=== PATIENT | female | born 1955 | race Caucasian/White ===

== ENCOUNTER 2023-09-03 19:14 | Emergency (ER) | payer MEDICARE, SELFPAY ==
--- NOTE | ~2023-09-03 | XR_ITS ---
EXAMINATION: XR CHEST CLINICAL INFORMATION: Shortness of breath COMPARISON: None available. TECHNIQUE: Frontal view of the chest was obtained. FINDINGS: No significant abnormality is noted involving the heart, lungs, mediastinum, bony thorax or soft tissues. XR/XR chest 1V IMPRESSION: Unremarkable examination.
--- NOTE | 2023-09-03 19:31 | ED_ITS ---
[facility] - General Adult General Chief complaint: Dyspnea Stated complaint: Difficulty breathing, face feels numb Time Seen by Provider: 09/04/23 00:42 Source: patient Mode of arrival: ambulatory History of Present Illness HPI narrative: 68-year-old female who presents with epigastric discomfort that is been ongoing for a couple of days and she reports palpitations but otherwise denies any fever, chills, cough, nausea, vomiting, diarrhea. Patient is visiting from [place] and states that she was on medications which she cannot recall but has since discontinued them. She is due to return to floor at a on 09/11. Related Data Allergies Allergy/AdvReac Type Severity Reaction Status Date / Time morphine Allergy Rash Verified 09/03/23 19:31 Review of Systems 2 Review of Systems: Pertinent positives and negatives as stated in [facility] Past Medical History Source: nursing notes reviewed Social History Social History Advance Directives: No Advance Directives Information Provided: No Physical Exam ED Vital Signs: Vital Signs - 24 hr 09/03/23 19:32 09/04/23 00:00 09/04/23 01:16 Temperature 98.3 F Pulse Rate 82 67 68 Respiratory Rate 18 14 Blood Pressure 141/75 H 136/68 138/62 Pulse Oximetry 98 94 Oxygen Delivery Method Room Air Room Air 09/04/23 01:16 09/04/23 01:19 Temperature Pulse Rate 70 74 Respiratory Rate Blood Pressure 143/72 H 138/70 Pulse Oximetry Oxygen Delivery Method BMI result Body Mass Index 34.3 VITAL SIGNS: Reviewed. GENERAL: Well developed, well nourished, in no acute distress. HEAD: Normocephalic/atraumatic EYES: PERRLA, EOMI EARS: Ext canals without abnormality, TMs non-bulging and non-erythematous NOSE: Nares patent bilateral OROPHARYNX: no oral lesions noted, posterior pharynx clear and non-erythematous without noted tonsillar enlargement/erythema/exudates NECK: Supple, no adenopathy LUNGS: Normal breath sounds. No adventitious sounds or accessory muscle use. SpO2<98> CARDIOVASCULAR: Regular rate and rhythm without noted murmurs ABDOMEN: Soft, mild epigastric pain without rebound, non-distended with bowel sounds. MUSCULOSKELETAL: No tenderness, deformities, or effusions noted on gross inspection. EXTREMITIES: No cyanosis, clubbing or edema. SKIN: Inspection of the skin reveals no rashes NEUROLOGIC: Alert and oriented x 4. Strength and sensation to light touch were grossly intact x 4. Course Course Course Narrative: RME: 68 yo F w/PMHx Fibromyalgia, arthritis, HTN, presenting to the ED c/o SOB, palpitations, face feeling numb/pressure, and lightheadedness x3hrs. Admits to similar sx in the past no focal neuro deficits. Ambulating with steady gait EKG, Labs, CXR, Viral testing ordered Full HPI, ROS and PE to be performed by primary ED provider. Medical Decision Making Medical Decision Making MDM Narrative: 68-year-old female with history and clinical presentation, DDX: Viral illness, gastritis/acid reflux, patient is status post cholecystectomy so no suspicion for cholecystitis and historical presentation not consistent with pancreatitis, will rule out pneumonia as well. I reviewed all investigations and hematologic indices are negative for leukocytosis or left shift, there is no anemia or thrombocytopenia. Chemistry indices are negative for acute derangement there is no evidence to suggest JURGEN are electrolyte/liver enzyme derangements. High sensitivity troponin is undetectable and BNP is negligible. Patient does have a TSH of 0.28 but denies the use of any prescription medications at this time. Although this could likely be contributing to the palpitations. Viral testing is negative for COVID-19/influenza. Chest x-ray negative for infiltrate or venous congestion otherwise my interpretation is in agreement with radiology's impression. There are no acute findings on EKG. My interpretation is that patient may be experiencing palpitations secondary to low TSH, as she is returning to floor in the next few days and her workup has otherwise been negative I do recommend that patient follow-up with her primary care doctor at her earliest convenience on return to floor. In addition, patient may have a component of acid reflux and was treated with a GI cocktail. Differential Diagnosis Differential Diagnoses: The differential diagnosis associated with the presentation includes Please see the discussion above Admission/Observation Consideration of admission/observation: Escalation of care including admission/observation considered Please see the discussion above Lab Data [facility] Lab Attestation statement: I reviewed the patient's lab results. Please see the discussion above 09/03/23 19:59 09/03/23 19:59 Labs: Lab Results 09/03/23 Range/Units 19:59 WBC 5.9 (4.8-10.8) X10*3/uL RBC 4.45 (4.20-5.50) X10*6/uL Hgb 12.6 (12.0-16.0) g/dl Hct 37.7 (37.0-47.0) % MCV 84.7 (80.0-98.0) fL MCH 28.3 (27.0-33.0) pg MCHC 33.4 (31.0-35.0) g/dl RDW 12.7 (11.0-16.0) % Plt Count 201 (160-400) X10*3/uL MPV 11.3 (9.4-12.3) fL Immature Gran % (Auto) 0.7 H (0.0-0.4) % Neut % (Auto) 55.9 (45-73) % Lymph % (Auto) 29.3 (20-40) % [place] % (Auto) 11.4 H (2-11) % Eos % (Auto) 1.7 (0-4) % Baso % (Auto) 1.0 (0-2) % Lymph # (Auto) 1.7 (1.2-4.9) X10*3/uL [place] # (Auto) 0.7 (0.1-1.2) X10*3/uL Eos # (Auto) 0.1 (0.0-0.4) X10*3/uL Baso # (Auto) 0.1 (0.0-0.2) X10*3/uL Abs Immat Gran (auto) 0.04 H (0.00-0.03) X10*3/uL Absolute Neuts (auto) 3.3 (2.0-8.3) x10*3/uL Absolute Nucleated RBC 0.000 (0.0-0.012) X10*3/uL Nucleated RBC % (auto) 0.0 (0.0-0.2) /100WBC Sodium 140 (135-145) mmol/L Potassium 4.0 (3.3-5.1) mmol/L Chloride 104 (96-108) mmol/L Carbon Dioxide 29 (22-29) mmol/L Anion Gap 11 L (12-20) BUN 15 (9-16) mg/dL Creatinine 0.80 (0.5-1.4) mg/dL Estim Creat Clear Calc 68.1 Estimated GFR > 60 Random Glucose 85 (60-115) mg/dL Calcium 9.1 (8.4-10.2) mg/dL Magnesium 2.2 (1.6-2.6) mg/dL Total Bilirubin 0.3 (0.0-1.0) mg/dL Direct Bilirubin 0.2 (0.0-0.5) mg/dL AST 21 (5-31) U/L ALT 22 (0-31) U/L Alkaline Phosphatase 93 (39-117) U/L Troponin I High Sens < 2.7 (<3.5-17.0) ng/L B-Natriuretic Peptide 44 (<100) pg/mL Total Protein 7.4 (6.5-8.0) g/dL Albumin 3.8 (3.5-5.0) g/dL TSH 0.28 L (0.32-4.0) uIU/mL Free T4 1.04 (0.71-1.85) ng/dL COVID-19 (KEVIN) Negative (Negative) COVID-19 Clin Com See Note Influenza Type A (LUIS E) Negative (Negative) Influenza Type B (LUIS E) Negative (Negative) Influenza A & B Note See Note Independent Interpretation I performed an independent interpretation of an: EKG Interpretation: Normal sinus rhythm, HR-72, no STEMI, [place]/QRS/QTC is within normal limits. Radiology Impression Discussion of test interpretation with radiology: I have reviewed the radiologist's reading. Radiologist Impression: Please see the discussion above Discharge Plan Discharge Clinical Impression: Heart palpitations, Low TSH level, GERD (gastroesophageal reflux disease) Patient Disposition: Home, Self-Care Instructions: Diet for Stomach Ulcers and Gastritis (ED), Gastroesophageal Reflux Disease (ED), Heart Palpitations (ED) Additional Instructions: 1. Recommend follow-up with your primary care doctor as soon as possible after your return to [place]. 2. Recommend [id number] Mylanta for acid reflux. Return to the ER for any worsening symptoms.
[2023-09-03 19:32] VITALS: BP 141/75; PULSE 82; RESP 18; TEMP 36.8; O2SAT 98; BMI 34.3
--- NOTE | 2023-09-03 19:33 | ECG_ITS ---
Test Reason : CHEST PAIN Blood Pressure : / mmHG Vent. Rate : 072 BPM Atrial Rate : 072 BPM P-R Int : 178 ms QRS Dur : 082 ms QT Int : 424 ms P-R-T Axes : 046 -18 075 degrees QTc Int : 464 ms Normal sinus rhythm Minimal voltage criteria for LVH, may be normal variant ( R in aVL ) Nonspecific ST abnormality Abnormal ECG No previous ECGs available Referred By: Amy Trujillo Electronically Signed By:VERO GARCÍA
[2023-09-03 20:06] LABS: MANUAL DIFF FLAG NO
[2023-09-03 20:28] LABS: COVID-19 Test Negative (Negative); IDNOW Serial# 08D9AD1C; IDNOW Serial# BCCEAD1C; Influenza A Negative (Negative); Influenza B2 Negative (Negative)
[2023-09-03 20:33] LABS: B Type Natriuretic Peptide 44 pg/mL (<100)
[2023-09-03 20:34] LABS: Alanine Aminotransferase 22 U/L (0-31); Albumin Level 3.8 g/dL (3.5-5.0); Alkaline Phosphatase 93 U/L (39-117); Anion Gap 11 (12-20); Aspartate Amino Transferase 21 U/L (5-31); Basophils Absolute Auto 0.1 X10*3/uL (0.0-0.2); Bilirubin Direct 0.2 mg/dL (0.0-0.5); Bilirubin Total 0.3 mg/dL (0.0-1.0); Blood Urea Nitrogen 15 mg/dL (9-16); Calcium 9.1 mg/dL (8.4-10.2); Carbon Dioxide 29 mmol/L (22-29); Chloride 104 mmol/L (96-108); Creatinine Clr Calc Pharmacy 68.1; Eosinophils Absolute Auto 0.1 X10*3/uL (0.0-0.4); Eosinophils Percent Auto 1.7 % (0-4); Estimated Glomerular Filt Rate > 60; Glucose Random 85 mg/dL (60-115); Hematocrit 37.7 % (37.0-47.0); Hemoglobin 12.6 g/dl (12.0-16.0); Imm Gran Abs Auto 0.04 X10*3/uL (0.00-0.03); Imm Gran Pct Auto 0.7 % (0.0-0.4); Lymphocytes Absolute Auto 1.7 X10*3/uL (1.2-4.9); Lymphocytes Percent Auto 29.3 % (20-40); Magnesium 2.2 mg/dL (1.6-2.6); Mean Corpuscular HGB Conc 33.4 g/dl (31.0-35.0); Mean Corpuscular Hemoglobin 28.3 pg (27.0-33.0); Mean Corpuscular Volume 84.7 fL (80.0-98.0); Mean Platelet Volume 11.3 fL (9.4-12.3); Monocytes Absolute Auto 0.7 X10*3/uL (0.1-1.2); Monocytes Percent Auto 11.4 % (2-11); Neutrophils Absolute Auto 3.3 x10*3/uL (2.0-8.3); Neutrophils Percent Auto 55.9 % (45-73); Platelet Count 201 X10*3/uL (160-400); Red Blood Count 4.45 X10*6/uL (4.20-5.50); Red Cell Distribution Width 12.7 % (11.0-16.0); Sodium 140 mmol/L (135-145); Total Protein 7.4 g/dL (6.5-8.0); White Blood Count 5.9 X10*3/uL (4.8-10.8)
[2023-09-03 20:35] LABS: Troponin-I High Sensitivity < 2.7 ng/L (<3.5-17.0)
[2023-09-03 20:49] LABS: TSH reflex Free T4 0.28 uIU/mL (0.32-4.0)
[2023-09-03 21:26] LABS: Free T4 (Free Thyroxine) 1.04 ng/dL (0.71-1.85)
[2023-09-04] VITALS: BP 136/68; PULSE 67; RESP 14; O2SAT 94
--- OUTSIDE RECORDS SUMMARY | 2023-09-04 00:11 | XMS_ITS | Summary of Care ---
Author Name Unknown Organization [facility] Address [address] [place] [address]- Care Team Providers Care Home Health Scheduler Name Role Phone Darlene Cohen Primary Care Physician Encounter [facility] [id number] Date(s): 07/03/23 - 07/03/23 [facility] [address] [facility] [phone] Encounter Diagnosis Left knee pain(Discharge Diagnosis) - 07/03/23 Discharge Disposition: HOME OR SELF CARE Attending Physician: Figueroa Wu MD Allergies, Adverse Reactions, Alerts Substance Reaction Severity Status naproxen rash Mild Active morphine Rash Active Assessment and Plan Extracted from: Title:ED Visit Note Author:Marcos Patel Date:07/03/23 Knee pain-swelling??(Knee pa in-swelling)([id number]) Orders: codeine-acetaminophen, 1 tab(s), PO, q6hr, X 3 day(s), # 12 tab(s), 0 Refill(s), 1 ketorolac, 15 mg, = 1 mL, IM, Inj, Once, 07/03/23 19:27:00 EDT, Stop date 07/03/23 19:27:00 EDT, STAT Discharge Patient Medications *Recommended Immunization Pneumococcal Vaccine TO BE ADMINISTERED OUTPATIENT, Based on screening during your hospitalization, it is recommended that you receive a pneumococcal vaccine. Please follow up with your primary care physician, [facility] pharmacy, or other outpatient pharmacy for further assistance., 0 Refill(s) Start Date: 07/20/21 Status: Ordered Albuterol (Eqv-ProAir HFA) 90 mcg/inh inhalation aerosol 2 puff(s), INH, 4xDaily, # 8 g, 0 Refill(s), Pharmacy: [id number], 2 puff(s) INH 4xDaily, 1, 157.48, cm, 07/20/21 4:23:00 EST, Height cm, 82.25, kg, 12/28/22 0:36:00 EDT, Weight, Actual kg Start Date: 12/28/22 Status: Ordered Althea 180 mg oral tablet 180 mg, = 1 tab(s), PO, 1xDaily, # 30 tab(s), 0 Refill(s), 12/28/22 4:44:00 AM EDT, Pharmacy: [facility], 1 tab(s) PO 1xDaily, 1, 157.48, cm, 07/20/21 4:23:00 EST, Height cm, 82.25, kg, 12/28/22 0:36:00 EDT, Weight, Actual kg Start Date: 12/28/22 Status: Ordered aspirin 81 mg oral tablet, chewable 81 mg =, 1 tab(s), PO, 1xDaily, 0 Refill(s), 1 Start Date: 07/20/21 Status: Ordered codeine-acetaminophen 30 mg-300 mg oral tablet 1 tab(s), PO, q6hr, X 3 day(s), # 12 tab(s), 0 Refill(s), 1 Start Date: 07/03/23 Stop Date: 07/06/23 Status: Ordered Flexeril 10 mg oral tablet 10 mg, = 1 tab(s), PO, 3xDaily, PRN for spasm, # 15 tab(s), 0 Refill(s), 08/12/20 10:07:00 AM EST, 1 Start Date: 08/12/20 Status: Ordered lisinopril 10 mg, PO, 1xDaily, 0 Refill(s), 07/20/21 11:33:00 AM EST, 1 Start Date: 07/20/21 Status: Ordered Naprosyn 375 mg oral tablet 375 mg, = 1 tab(s), PO, 2xDaily, # 20 tab(s), 0 Refill(s), 08/12/20 10:07:00 AM EST, 1 Start Date: 08/12/20 Status: Ordered Tylenol 325 mg oral tablet 650 mg =, 2 tab(s), PO, q6hr, PRN as needed for pain, 1 Start Date: 02/13/20 Status: Ordered Vitamin B12 1000 mcg oral tablet 1,000 mcg, = 1 tab(s), PO, 1xDaily, 02/13/20 9:22:00 AM EDT, 1 Start Date: 02/13/20 Status: Ordered Vitamin C 1000 mg oral tablet 1,000 mg, = 1 tab(s), PO, 1xDaily, 02/13/20 9:22:00 AM EDT, 1 Start Date: 02/13/20 Status: Ordered Vitamin D3 1000 intl units oral capsule 1,000 Intl-Unit, = 1 cap(s), PO, 1xDaily, 02/13/20 9:22:00 AM EDT, 1 Start Date: 02/13/20 Status: Ordered Problem List Condition Confirmation Course Effective Dates Status H ealth Status Informant Acute cervical radiculopathy Confirmed Active Spondylosis of cervical joint Confirmed Active Hypertension Confirmed Active Obese Confirmed Active Vital Signs Most recent to oldest [Reference Range]: 1 Temperature Oral [96.8-101 DegF] 98.2 De gF (07/03/23 4:52 PM) Pulse Rate [60-90 bpm] 69 bpm (07/03/23 5:28 PM) Respiratory Rate [12-20 br/min] 18 br/mi n (07/03/23 4:52 PM) Mean Arterial Pressure, Cuff [65 mmHg] 8 5 mmHg (07/03/23 5:28 PM) BP Obtained By Blood pressure by ruy montanez (07/03/23 4:52 PM) Blood Pressure [90-120/60-90 mmHg] 113/7 1mmHg (07/03/23 5:28 PM) Social History Social History Type Response Smoking Status Never a smoker Sex Female XR Knee GE 4 Views * Event Display: Knee Comp W/4 or > Views Authored Date: [id number] * Event Display: Knee Comp W/4 or > Views Authored Date: [id number] Exam Date/Time: 07/03/2023 18:09 Finalized On: 07/03/2023 18:17 PROCEDURE: KNEE 4 OR MORE VIEWS LEFT CLINICAL INDICATION: Left knee pain Findings and impression: There is moderate to severe tricompartmental osteoporosis, worse within the medial compartment. No fracture identified. No radiopaque foreign bodies. No aggressive osseous lesions. RPRETED BY: Shadi Kunz Finalized On: 07/03/2023 18:17 Physician Emergency department Note * Marcos Patel PA-C: PERFORM, MODIFY Event Display: ED Physician Notes Authored Date: [id number] Chief Complaint Pt here for L knee pain off and on for a while, states now for apst 2 days has been much worse. Feels as if something isstabbing her in knee. Denies any injuryor trauma. Skin w/d. Resp e/u. History of Present Illness Date/Time Seen:??07/03/2023 19:00:28 ?? Patient Provided History:??Yes [employer] used:??No History limitation:??None Independent History Source:??_ ?? Chief Complaint:??Reason for Visit Narrative: Pt here for L knee pain off and on for a while, states now for apst 2 days has been much worse. Feels as if something isstabbing her in knee. Denies any injuryor trauma. Skin w/d. Resp e/u. (07/03/23 16:52:00) Mode of Arrival:??ED Mode of Arrival: Ambulatory/WC/Carried (07/03/23 16:52:00) PCP:??Primary Care Physician:?Noel , Darlene Sex:??female Administrative Sex:??Female ?? HPI: Patient is a??68 Years??old??Female??presenting with a complaint of [left knee pain for??10years??and for the past month she has felt increased??pain, and??within this past week the pain??has been worsening.?? Patient??reports that she was limping. ??Patient denies having direct impact to the area.?? She denies weakness or numbness. ??Patient states she??has seen orthopedics in the past and??was given an injection into her joint.]. ?? Physical Exam Vitals & Measurements Initial: T: 98.2 ??F (Oral) HR: 72 (Peripheral) BP: 146/78 RR: 18 SpO2: 97% ?? Latest: HR: 69 (Peripheral) BP: 113/71 SpO2: 96% General: in NAD. Speaks in complete sentences. Non-toxic. HEENT: NCAT, PERRLA, EOMI CV: Normal pulse Resp: non-labored. Neuro: AAO x 3, normal affect, normal mood Skin: normal turgor Musculoskeletal:??Left knee:??Tenderness on palpation medial aspect of the knee and on range of motion.?? No ligamentous laxity. ??Negative Lorenzo's test tenderness. Medical Decision Making Differential Diagnosis: [Left knee pain] ?? Consideration of Admission/Observation:??_ ?? Chronic conditions affecting care: [] _ _ _ ?? MDM Rationale: [Patient is a??68 Years??old??Female??presenting with a complaint of [left knee painfor??10 years??and for the past month she has felt increased??pain, and??within this past week the pain??has been worsening.?? Patient??reports that she was limping. ??Patient denies having direct impact to the area.?? She denies weakness or numbness. ??Patient states she??has seen orthopedics in the past and??was given an injection into her joint.].]?? Patient was x-ray of the left knee was negative for acute fracture. ?? Discussion of management with other physician/healthcare provider: [] _ _ _ _ ?? External Notes Reviewed: [] _ _ _ _ ?? Independent Interpretation: EKG: My independent interpretation is:??n/a Rhythm Strip: My independent interpretation is:??n/a X-ray:??My independent interpretation is:??n/a Ultrasound: My independent interpretation is:??n/a CT: My independent interpretation is:??n/a ?? Discussion of Radiology Result with Radiologist:??_ ?? Testing considered but not performed: The following testing was considered but ultimately not selected after discussion with patient/family: ??n/a ?? Prescription medication was considered but ultimately not given after discussion with patient/family:?? I considered prescription management with:??n/a ?? Patient???s care significantly limited by Social Determinants of Health including:??[]?? _ _ _ _ ?? Behavioral Health: Initial CSSRS:??CSSRS Suicide Risk Level?? No qualifying data available. CSSRS Re-evaluation:??n/a ?? Sepsis:??n/a ?? Stroke:??n/a ?? STEMI:??n/a ?? Reexamination/Reevaluation Date/Time:??07/04/2023 04:54:37 ?? Most Recent Vital Signs: Temperature Oral: 98.2 DegF (07/03/23 16:52:00) Pulse Rate: 69 bpm (07/03/23 17:28:45) Respiratory Rate: 18 br/min (07/03/23 16:52:00) Systolic Blood Pressure: 113 mmHg (07/03/23 17:28:42) Diastolic Blood Pressure: 71 mmHg (07/03/23 17:28:42) Oxygen Therapy: Room air (07/03/23 16:52:00) SpO2: 96 % (07/03/23 17:28:45) ?? Orthostatics:??n/a ?? Reevaluation: [Patient was in no acute distress] ? Assessment/Plan Diagnosis List Knee pain-swelling??(Knee pain-swelling)([id number]) Orders: codeine-acetaminophen, 1 tab(s), PO, q6hr, X 3 day(s), # 12 tab(s), 0 Refill(s), 1 ketorolac, 15 mg, = 1 mL, IM, Inj, Once, 07/03/23 19:27:00 EDT, Stop date 07/03/23 19:27:00 EDT, STAT Discharge Patient Follow Up Follow Up with??Jordan Mcnamara MD, Orthopedic Surgery When??Within 3 - 5 Days Comments: Call to arrange an appointment Where: Allergies naproxen??(rash) morphine??(Rash) Problem List/Past Medical History Ongoing Acute cervical radiculopathy Hypertension Obese Spondylosis of cervical joint Historical Arthritis Fibromyalgia Procedure/Surgical History ??? delivery???Laryngotomy with removal of tumor???Tubal ligation???Uterine cancer Social History Tobacco Tobacco Use: Never a smoker (07/03/23) Alcohol Denies use Diagnostic Results Radiology Results??(07/02/23 00:00 - 07/03/23 19:39) Electronically Signed By: Marcos Patel PA-C, on 07.04.2023 04:56 AM Electronically Signed By: Figueroa Wu MD Patient Care team information Care Team Personnel Name: Darlene Cohen Position: Office Physician Member Role: PCP Lifetime Address: Address: [address] [place] [id number] [place] Name: Figueroa Wu MD Position: ED Physician Member Role: Attending Physician Address: Address: [address] [place] [phone] [place] Name: Marcos Patel PA-C Position: ED Physician Preschool Assistant Member Role: PA Address: Address: [address] [place] [phone] [place]
--- OUTSIDE RECORDS SUMMARY | 2023-09-04 00:11 | XMS_ITS | Summary of Care ---
Author Name Unknown Organization [facility] Address [address] [place] [address]- [facility] [phone] Encounter [facility] Date(s): 04/02/19 - 04/02/[address] [facility] [address] [place] [id number] [phone] Encounter Diagnosis Vomiting(Discharge Diagnosis) - 04/02/19 Diarrhea(Discharge Diagnosis) - 04/02/19 Arthritis(Discharge Diagnosis) - 04/02/19 Discharge Disposition: [facility] HOME/ROUTINE DISCHARGE Attending Physician: Miguel De La O DO Admitting Physician: UNASSIGNED , ER DOCTOR Vital Signs Most recent to oldest [Reference Range]: 1 2 3 Temperature Oral [96.4-99.1 DegF] 98.6 DegF (04/02/19 7:50 PM) 98 DegF (04/02/19 2:53 PM) Heart Rate Monitored [60-100 bpm] 68 bpm (04/02/19 10:07 PM) 70 bpm (04/02/19 9:21 PM) 67 bpm (04/02/19 7:50 PM) Pulse Rate [60-100 bpm] 80 bpm (04/02/19 2:53 PM) Respiratory Rate [14-20] 16 (04/02/19 10:07 PM) 18 (04/02/19 9:21 PM) 20 (04/02/19 7:50 PM) Mean Arterial Pressure, Cuff 87 mmHg (04/02/19 10:07 PM) 98 mmHg (04/02/19 9:21 PM) 95 mmHg (04/02/19 7:50 PM) BP Obtained By Blood Pressure by Machine (04/02/19 2:53 PM) ED Laterality Right arm (04/02/19 2:53 PM) Weight, Actual kg 82 kg (04/02/19 2:53 PM) Weight, Actual kg - manual 82 kg (04/02/19 2:53 PM) Type of Scale Used Standing (04/02/19 2:53 PM) Height cm 157.48 cm (04/02/19 2:53 PM) Height Inches 62 inch(es) (04/02/19 2:53 PM) Body Surface Area 1.8939 (04/02/19 2:53 PM) Body Mass Index (BMI) 33 kg/m2 (04/02/19 2:53 PM) Blood Pressure [90-120/60-80 mmHg] 136/68mmHg *HI* (04/02/19 10:07 PM) 139/78mmHg *HI* (04/02/19 9:21 PM) 140/77mmHg *HI* (04/02/19 7:50 PM) Problem List Condition Effective Dates Status Health Status Inform ant Spondylosis of cervical joint(Confirmed) Active Hypertension(Confirmed) Active Allergies, Adverse Reactions, Alerts Substance Reaction Severity Status morphine Rash Active Medications Zofran ODT 4 mg oral tablet, disintegrating 4 mg, = 1 tab(s), PO, q6hr, PRN Nausea/Vomiting, X 3 day(s), # 12 tab(s), 0 Refill(s), 04/02/19 20:30:00 EDT, 1 Start Date: 04/02/19 Stop Date: 04/05/19 Status: Ordered Results Most recent to oldest [Reference Range]: 1 Culture Reflexed No (04/02/19 7:49 PM) eGFR (nonAfrAm) [>=60 mL/min/1.73 m2] >6 0 mL/min/1.73 m2 (04/02/19 3:24 PM) eGFR (AfrAm) [>=60 mL/min/1.73 m2] >60 m L/min/1.73 m2 (04/02/19 3:24 PM) eCrCl (Drug Dosing) [70-120 mL/min] 81 m L/min 1 (04/02/19 3:24 PM) Basophil, Abs [0.0-0.2 th/uL] 0.1 th/uL (04/02/19 3:24 PM) BUN [6-26 mg/dL] 10 mg/dL (04/02/19 3:24 PM) Anion Gap [5-16] 12 (04/02/19 3:24 PM) Albumin [3.4-5.0 g/dL] 4.2 g/dL (04/02/19 3:24 PM) Alk Phos [45-117 IU/L] 89 IU/L (04/02/19 3:24 PM) ALT [12-78 IU/L] 23 IU/L (04/02/19 3:24 PM) AST [7-37 IU/L] 22 IU/L (04/02/19 3:24 PM) Baso [0.0-2.0 %] 1.2 % (04/02/19 3:24 PM) Bili Total [0.2-1.0 mg/dL] 0.4 mg/dL (04/02/19 3:24 PM) Calcium [8.50-10.10 mg/dL] 9.20 mg/dL (04/02/19 3:24 PM) Chloride [98-107 mmol/L] 103 mmol/L (04/02/19 3:24 PM) Carbon Dioxide [21-32 mmol/L] 28 mmol/L (04/02/19 3:24 PM) Creatinine [0.30-1.30 mg/dL] 0.69 mg/dL (04/02/19 3:24 PM) Eos [0.0-6.0 %] 1.8 % (04/02/19 3:24 PM) Eosinophil, Abs [0.0-0.4 th/uL] 0.1 th/u L (04/02/19 3:24 PM) Glucose [70-99 mg/dL] 112 mg/dL *HI* (04/02/19 3:24 PM) HCT [37.0-47.0 %] 39.7 % (04/02/19 3:24 PM) HGB [12.0-16.0 g/dL] 13.6 g/dL (04/02/19 3:24 PM) Lipase [73-393 U/L] 41 U/L *LOW* (04/02/19 3:24 PM) Lymphs [24.0-44.0 %] 22.1 % *LOW* (04/02/19 3:24 PM) MCH [26.0-32.0 pg] 29.8 pg (04/02/19 3:24 PM) MCHC [31.0-36.0 g/dL] 34.1 g/dL (04/02/19 3:24 PM) MCV [80.0-100.0 fL] 87.2 fL (04/02/19 3:24 PM) Caroline [0.0-10.0 %] 9.9 % (04/02/19 3:24 PM) MPV [6.5-13.0 fL] 10.2 fL (04/02/19 3:24 PM) Segs [45.0-75.0 %] 65.0 % (04/02/19 3:24 PM) PLT [140-450 th/uL] 161 th/uL (04/02/19 3:24 PM) Potassium [3.5-5.1 mmol/L] 4.3 mmol/L (04/02/19 3:24 PM) RBC [3.60-5.40 mill/uL] 4.55 mill/uL (04/02/19 3:24 PM) RDW [11.5-14.5 %] 13.5 % (04/02/19 3:24 PM) Sodium [136-145 mmol/L] 142 mmol/L (04/02/19 3:24 PM) WBC [4.5-11.0 th/uL] 4.9 th/uL (04/02/19 3:24 PM) Leuk Est Negative (04/02/19 7:49 PM) Nitrite Negative (04/02/19 7:49 PM) Urobilinogen Negative EU/DL (04/02/19 7:49 PM) Protein Negative (04/02/19 7:49 PM) pH [5.0-8.0] 5.0 (04/02/19 7:49 PM) Blood [Negative] Negative (04/02/19 7:49 PM) Spec Grav [1.003-1.030] 1.025 (04/02/19 7:49 PM) Ketone Trace *ABN* (04/02/19 7:49 PM) Bilirubin Negative (04/02/19 7:49 PM) Glucose Negative (04/02/19 7:49 PM) Color [Yellow] Yellow (04/02/19 7:49 PM) Appearance Clear (04/02/19 7:49 PM) BUN/Creatinine [7-34] 14 (04/02/19 3:24 PM) Globulin [2.4-4.2 g/dL] 3.4 g/dL (04/02/19 3:24 PM) Alb/Glob [0.8-1.6] 1.2 (04/02/19 3:24 PM) T Protein [6.4-8.2 g/dL] 7.6 g/dL (04/02/19 3:24 PM) Lymph, Abs [0.7-4.0 th/uL] 1.1 th/uL (04/02/19 3:24 PM) Monocyte, Abs [0.0-0.8 th/uL] 0.5 th/uL (04/02/19 3:24 PM) Neutrophil, Abs [1.4-8.5 th/uL] 3.2 th/u L (04/02/19 3:24 PM) 1Result Comment: Calculated by Discern Expert using the Cockcroft-Gault formula and the patients Dosing weight of 62.56 because the patients actual weight is 20% > than the IBW of 49.60. Procedures Procedure Date Related Diagnosis Body Site Status COLLECTION VENOUS BLOOD VENIPUNCTURE 04/02/19 Completed Social History Social History Type Response Smoking Status Never a smoker Assessment and Plan Future Appointments ??
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
--- OUTSIDE RECORDS SUMMARY | 2023-09-04 00:11 | XMS_ITS | Summary of Care ---
Author Name Unknown Organization [facility] Address [address] [place] [address]- [facility] [phone] Encounter [facility] Date(s): 08/04/18 - 08/04/18 [facility] [address] [place] [id number] [phone] Encounter Diagnosis Colitis(Discharge Diagnosis) - 08/04/18 Diarrhea(Discharge Diagnosis) - 08/04/18 Discharge Disposition: [facility] HOME/ROUTINE DISCHARGE Attending Physician: Moise Ramirez MD Admitting Physician: Moise Ramirez MD Vital Signs Most recent to oldest [Reference Range]: 1 2 3 Temperature Oral [96.4-99.1 DegF] 97.8 DegF (08/04/18 3:44 PM) 99 DegF (08/04/18 12:38 PM) 100.1 DegF *HI* (08/04/18 10:34 AM) Heart Rate Monitored [60-100 bpm] 89 bpm (08/04/18 3:44 PM) 90 bpm (08/04/18 12:38 PM) 98 bpm (08/04/18 7:24 AM) Pulse Rate [60-100 bpm] 107 bpm *HI* (08/03/18 11:00 PM) 97 bpm (08/03/18 10:14 PM) 112 bpm *HI* (08/03/18 9:03 PM) Respiratory Rate [14-20] 16 (08/04/18 3:44 PM) 19 (08/04/18 12:38 PM) 13 *LOW* (08/04/18 7:24 AM) Mean Arterial Pressure, Cuff 85 mmHg (08/04/18 3:44 PM) 82 mmHg (08/04/18 12:38 PM) 91 mmHg (08/04/18 7:24 AM) BP Obtained By Blood Pressure by Machine (08/04/18 3:44 PM) Blood Pressure by Machine (08/04/18 12:38 PM) Blood Pressure by Machine (08/04/18 7:24 AM) ED Laterality Right arm (08/04/18 3:44 PM) Left arm (08/04/18 12:38 PM) Left arm (08/04/18 7:24 AM) Weight, Actual kg 83 kg (08/03/18 9:03 PM) Weight, Actual kg - manual 83 kg (08/03/18 9:03 PM) Blood Pressure [90-120/60-80 mmHg] 126/69mmHg *HI* (08/04/18 3:44 PM) Systolic Blood Pressure [90-120 mmHg] 126 mmHg *HI* (08/04/18 12:38 PM) 128 mmHg *HI* (08/04/18 7:24 AM) Diastolic Blood Pressure [60-80 mmHg] 60 mmHg (08/04/18 12:38 PM) 72 mmHg (08/04/18 7:24 AM) Problem List Condition Effective Dates Status Health Status Inform ant Spondylosis of cervical joint(Confirmed) Active Hypertension(Confirmed) Active Allergies, Adverse Reactions, Alerts Substance Reaction Severity Status morphine Rash Active Medications Cipro 500 mg oral tablet 500 mg, = 1 tab(s), PO, q12hr, X 7 day(s), # 14 tab(s), 0 Refill(s), 08/04/18 15:09:00 EST, Pharmacy: [facility], 1 tab(s) PO q12hr,x7 day(s), 1 Start Date: 08/04/18 Stop Date: 08/11/18 Status: Ordered Flagyl 500 mg oral tablet 500 mg, = 1 tab(s), PO, q8hr, X 7 day(s), # 21 tab(s), 0 Refill(s), 08/04/18 15:10:00 EST, [facility], 1 tab(s) PO q8hr,x7 day(s), 1 Start Date: 08/04/18 Stop Date: 08/11/18 Status: Ordered Results Hematology Most recent to oldest [Reference Range]: 1 2 WBC [4.5-11.0 th/uL] 7.1 th/uL (08/04/18 8:50 AM) 7.7 th/uL (08/03/18 10:06 PM) RBC [3.60-5.40 mill/uL] 4.39 mill/uL (08/04/18 8:50 AM) 4.72 mill/uL (08/03/18 10:06 PM) HGB [12.0-16.0 g/dL] 13.3 g/dL (08/04/18 8:50 AM) 14.1 g/dL (08/03/18 10:06 PM) HCT [37.0-47.0 %] 38.3 % (08/04/18 8:50 AM) 41.3 % (08/03/18 10:06 PM) MCV [80.0-100.0 fL] 87.2 fL (08/04/18 8:50 AM) 87.6 fL (08/03/18 10:06 PM) MCH [26.0-32.0 pg] 30.3 pg (08/04/18 8:50 AM) 29.9 pg (08/03/18 10:06 PM) MCHC [31.0-36.0 g/dL] 34.7 g/dL (08/04/18 8:50 AM) 34.1 g/dL (08/03/18 10:06 PM) RDW [11.5-14.5 %] 12.9 % (08/04/18 8:50 AM) 12.8 % (08/03/18 10:06 PM) PLT [140-450 th/uL] 137 th/uL *LOW* (08/04/18 8:50 AM) 155 th/uL (08/03/18 10:06 PM) MPV [6.5-13.0 fL] 10.1 fL (08/04/18 8:50 AM) 10.3 fL (08/03/18 10:06 PM) Segs [45.0-75.0 %] 88.2 % *HI* (08/04/18 8:50 AM) 86.6 % *HI* (08/03/18 10:06 PM) Lymphs [24.0-44.0 %] 6.9 % *LOW* (08/04/18 8:50 AM) 8.0 % *LOW* (08/03/18 10:06 PM) Johnson [0.0-10.0 %] 4.2 % (08/04/18 8:50 AM) 4.7 % (08/03/18 10:06 PM) Eos [0.0-6.0 %] 0.1 % (08/04/18 8:50 AM) 0.4 % (08/03/18 10:06 PM) Baso [0.0-2.0 %] 0.6 % (08/04/18 8:50 AM) 0.3 % (08/03/18 10:06 PM) Neutrophil, Abs [1.4-8.5 th/uL] 6.2 th/u L (08/04/18 8:50 AM) 6.7 th/uL (08/03/18 10:06 PM) Lymph, Abs [0.7-4.0 th/uL] 0.5 th/uL *LOW* (08/04/18 8:50 AM) 0.6 th/uL *LOW* (08/03/18 10:06 PM) Monocyte, Abs [0.0-0.8 th/uL] 0.3 th/uL (08/04/18 8:50 AM) 0.4 th/uL (08/03/18 10:06 PM) Eosinophil, Abs [0.0-0.4 th/uL] 0.0 th/u L (08/04/18 8:50 AM) 0.0 th/uL (08/03/18 10:06 PM) Coagulation Most recent to oldest [Reference Range]: 1 2 D-Dimer, Quant [0-500 ng/mL FEU] 1300 ng /mL FEU *HI* (08/04/18 1:14 AM) Urinalysis Most recent to oldest [Reference Range]: 1 2 Color [Yellow] Straw (08/03/18 10:15 PM) Appearance Clear (08/03/18 10:15 PM) Spec Grav [1.003-1.030] 1.003 (08/03/18 10:15 PM) pH [5.0-8.0] 8.0 (08/03/18 10:15 PM) Protein Negative (08/03/18 10:15 PM) Glucose Negative (08/03/18 10:15 PM) Ketone Negative (08/03/18 10:15 PM) Bilirubin Negative (08/03/18 10:15 PM) Blood [Negative] Negative (08/03/18 10:15 PM) Urobilinogen Negative EU/DL (08/03/18 10:15 PM) Leuk Est Negative (08/03/18 10:15 PM) Nitrite Negative (08/03/18 10:15 PM) General Chem Most recent to oldest [Reference Range]: 1 2 Sodium [136-145 mmol/L] 138 mmol/L (08/04/18 8:50 AM) 133 mmol/L *LOW* (08/03/18 10:06 PM) Potassium [3.5-5.1 mmol/L] 3.9 mmol/L (08/04/18 8:50 AM) 4.0 mmol/L (08/03/18 10:06 PM) Chloride [98-107 mmol/L] 103 mmol/L (08/04/18 8:50 AM) 97 mmol/L *LOW* (08/03/18 10:06 PM) Carbon Dioxide [21-32 mmol/L] 24 mmol/L (08/04/18 8:50 AM) 23 mmol/L (08/03/18 10:06 PM) Glucose [70-99 mg/dL] 111 mg/dL *HI* (08/04/18 8:50 AM) 120 mg/dL *HI* (08/03/18 10:06 PM) BUN [6-26 mg/dL] 10 mg/dL (08/04/18 8:50 AM) 12 mg/dL (08/03/18 10:06 PM) Creatinine [0.30-1.30 mg/dL] 0.76 mg/dL (08/04/18 8:50 AM) 0.78 mg/dL (08/03/18 10:06 PM) BUN/Creatinine [7-34] 13 (08/04/18 8:50 AM) 15 (08/03/18 10:06 PM) Calcium [8.50-10.10 mg/dL] 8.50 mg/dL (08/04/18 8:50 AM) 9.10 mg/dL (08/03/18 10:06 PM) T Protein [6.4-8.2 g/dL] 6.9 g/dL (08/04/18 8:50 AM) 7.7 g/dL (08/03/18 10:06 PM) Albumin [3.4-5.0 g/dL] 3.8 g/dL (08/04/18 8:50 AM) 4.1 g/dL (08/03/18 10:06 PM) Globulin [2.4-4.2 g/dL] 3.1 g/dL (08/04/18 8:50 AM) 3.6 g/dL (08/03/18 10:06 PM) Alb/Glob [0.8-1.6] 1.2 (08/04/18 8:50 AM) 1.1 (08/03/18 10:06 PM) Bili Total [0.2-1.0 mg/dL] 0.8 mg/dL (08/04/18 8:50 AM) 0.5 mg/dL (08/03/18 10:06 PM) Alk Phos [45-117 IU/L] 76 IU/L (08/04/18 8:50 AM) 90 IU/L (08/03/18 10:06 PM) ALT [12-78 IU/L] 25 IU/L (08/04/18 8:50 AM) 30 IU/L (08/03/18 10:06 PM) AST [7-37 IU/L] 20 IU/L (08/04/18 8:50 AM) 28 IU/L (08/03/18 10:06 PM) Anion Gap [5-16] 11 (08/04/18 8:50 AM) 13 (08/03/18 10:06 PM) Lipase [73-393 U/L] 38 U/L *LOW* (08/03/18 10:06 PM) Lactic Acid [0.4-2.0 mmol/L] 1.7 mmol/L (08/03/18 10:06 PM) eGFR (nonAfrAm) [>=60 mL/min/1.73 m2] >6 0 mL/min/1.73 m2 (08/04/18 8:50 AM) >60 mL/min/1.73 m2 (08/03/18 10:06 PM) eGFR (AfrAm) [>=60 mL/min/1.73 m2] >60 m L/min/1.73 m2 (08/04/18 8:50 AM) >60 mL/min/1.73 m2 (08/03/18 10:06 PM) Procedures Procedure Date Related Diagnosis Body Site Status COLLECTION VENOUS BLOOD VENIPUNCTURE 08/04/18 Completed COLLECTION VENOUS BLOOD VENIPUNCTURE 08/03/18 Completed Social History Social History Type Response Smoking Status Never a smoker Assessment and Plan Extracted from: Title:CDU discharge summary merge Author:Tana Trejo APRN Date:08/04/18 Patient: GASTON MARLOW Age: 63 years Sex: Female : 1955 Associated Diagnoses: Colitis; Diarrhea Author: Tana Trejo APRN Primary Care Provider: Dr. Whalen Date and Time of Admit to Observation : 08/04/18 at 0259 Date and Time of Discharge order: 08/04/18 at 1514 Hospital Course: 63-year-old female was admitted to CDU unit for abdominal pain with diarrhea and a low-grade fever started yesterday. Diagnosed with colitis, was admitted to CDU for IV fluids, pain control, IV Cipro, IV Flagyl, all test results were reviewed. The patient within normal limits. Patient afebrile, nontoxic appearing, able to tolerate by mouth fluids. Will be discharged home on by mouth Flagyl and by mouth Cipro. Outpatient follow-up primary care physician tomorrow. Discharge Information Diagnosis: Fever : Resolved, take Tylenol as needed for fevers. Abdominal pain : Resolved, continue with by mouth Cipro. Flagyl. Clear liquid diet for the next 24 hours. Noninfective gastroenteritis and colitis, unspecified : IV fluids, IV Cipro, IV Flagyl, will be discharged home on by mouth Cipro by mouth Flagyl clear liquid diet for 24 hours. Advance to bland diet as tolerated. Diarrhea, unspecified : Improving, IV fluids, IV Cipro, IV Flagyl. Will be discharged home on by mouth Cipro, by mouth Flagyl, clear liquid diet advance to bland diet as tolerated. Discharge medication Discharge medications: Prescriptions Given: ciprofloxacin (Cipro 500 mg oral tablet) 500 mg = 1 tab(s), PO, q12hr, for 7 day(s), 14 tab(s), 0 Refill(s) metroNIDAZOLE (Flagyl 500 mg oral tablet) 500 mg = 1 tab(s), PO, q8hr, for 7 day(s), 21 tab(s), 0 Refill(s) Follow up Plan 1. Call your primary care physician for an outpatient follow-up appointment. Take medications as prescribed. Fluid diet for next 24 hours. Advance to bland diet as tolerated. Objective Reports ADMISSION LAB WORK 08/04/18 08:50 Lymphs: 6.9 % 08/04/18 08:50 Lymph, Abs: 0.5 th/uL 08/04/18 08:50 PLT: 137 th/uL 08/04/18 08:50 Segs: 88.2 % 08/04/18 08:50 WBC: 7.1 th/uL 08/04/18 08:50 RBC: 4.39 mill/uL 08/04/18 08:50 HGB: 13.3 g/dL 08/04/18 08:50 HCT: 38.3 % 08/04/18 08:50 MCV: 87.2 fL 08/04/18 08:50 MCH: 30.3 pg 08/04/18 08:50 MCHC: 34.7 g/dL 08/04/18 08:50 RDW: 12.9 % 08/04/18 08:50 MPV: 10.1 fL 08/04/18 08:50 Johnson: 4.2 % 08/04/18 08:50 Eos: 0.1 % 08/04/18 08:50 Baso: 0.6 % 08/04/18 08:50 Neutrophil, Abs: 6.2 th/uL 08/04/18 08:50 Monocyte, Abs: 0.3 th/uL 08/04/18 08:50 Eosinophil, Abs: 0.0 th/uL No qualifying data available. Results Review General results Most recent results Reviewed Results: All Discharge Information Discharge Summary Information: Admission: 08/04/2018, Discharge: , Admitting Physician: Moise Ramirez MD, Consulting Physician:, Discharge medications: Prescriptions Given: ciprofloxacin (Cipro 500 mg oral tablet) 500 mg = 1 tab(s), PO, q12hr, for 7 day(s), 14 tab(s), 0 Refill(s) metroNIDAZOLE (Flagyl 500 mg oral tablet) 500 mg = 1 tab(s), PO, q8hr, for 7 day(s), 21 tab(s), 0 Refill(s). Active diagnoses/ Problem list at discharge: Problems (Medical) Hypertension: (Medical) Spondylosis of cervical joint: (Medical). Physical Examination General: Alert and oriented, Mild distress. Eye: Pupils are equal, round and reactive to light, Extraocular movements are intact, Vision unchanged. HENT: Normocephalic, Oral mucosa is moist. Respiratory: Lungs are clear to auscultation, Respirations are non-labored, Breath sounds are equal, Symmetrical chest wall expansion. Cardiovascular: Normal rate, Regular rhythm, No murmur, No gallop, Good pulses equal in all extremities, No edema. Gastrointestinal: Soft, Non-tender, Non-distended, Normal bowel sounds. VS/Measurements Vital Signs (last 24 hrs) Last Charted Minimum Maximum Temp 99 (AUG 04 12:38) 99 (AUG 04 12:38) H 102.8 (AUG 04 04:49) Heart Rate 90 (AUG 04 12:38) 90 (AUG 04 12:38) H 115 (AUG 04 05:44) Resp Rate 19 (AUG 04 12:38) L 13 (AUG 04 07:24) H 25 (AUG 04 04:00) SBP H 126 (AUG 04 12:38) H 126 (AUG 04 12:38) H 144 (AUG 03 22:14) DBP 60 (AUG 04 12:38) 60 (AUG 04 12:38) H 85 (AUG 03 21:03) SpO2 96 (AUG 04 12:38) 92 (AUG 04 07:24) 100 (AUG 03 21:03) Intake and Output Intake and Output Summary (08/03/2018 15:12 - 08/04/2018 15:11) startIO 8 Hrs 12 Hrs 24 Hrs Intake 0 mL 27 mL 1279 mL Output 0 mL 0 mL 0 mL Balance 0 mL 27 mL 1279 mL stopIO Musculoskeletal Normal range of motion. Normal strength. No tenderness. No swelling. Integumentary: Warm, Dry, Intact. Neurologic: Alert, Oriented, Moves all extremities appropriately. Cognition and Speech: Oriented, Speech clear and coherent. Psychiatric: Cooperative, Appropriate mood & affect. Genitourinary: No costovertebral angle tenderness. Hospital Course Hospital Course Admitted from: from emergency department. Admitting diagnosis: Colitis ([id number] K52.9, Discharge, Medical), Diarrhea ([id number]-WD R19.7, Discharge, Medical). Admission disposition: admit to monitored bed. Discharge Plan Discharge Summary Plan Discharge Status: improved. Discharge instructions given: to patient. Discharge disposition: discharge to home (into the care of family member, self care). Prescriptions: continue same medications, reviewed with patient, called to pharmacy. Present on Admission Summary: My supervising physician was present in the building and able to render assistance as needed while I provided care.. Diagnosis Colitis ([id number] K52.9, Discharge, Medical). Diarrhea ([id number]-KC R19.7, Discharge, Medical). Course Improving. Progressing as expected. Well controlled. Orders PowerOrders Patient Care: Activity After Discharge (Order): 08/04/2018 15:14 EST, As tolerated Admit/Transfer/Discharge: To home independently (Order): 08/04/2018 15:14 EST, To home independently. Education and Follow-up Counseled: patient, regarding diagnosis, regarding treatment, regarding medications, Patient is resting comfortably she is pain-free on exam. She is afebrile, she is nontoxic appearing, she is able to tolerate by mouth fluids without difficulty. Decreased diarrhea. All test results were reviewed with patient. Counseled on a clear liquid diet for the next 24 hours and then advance to a bland diet as tolerated. Given strict return to emergency room guidelines. Call her primary care physician tomorrow for follow-up appointment. Return to emergency room if any new or worsening symptoms. All questions were answered. Patient verbalized understanding and agrees with plan of care. . Discharge Planning: HYPERTENSION, Established, DIARRHEA, Viral (6y-Adult), GASTROENTERITIS, Viral [6y-Adult], DIET, Clear Liquid, Follow up with primary care provider Within 1 Day Call to arrange an appointment Follow up with primary care provider Return immediately if symptoms worsen Seek medical care if symptoms worsen. Addendum by Moise Ramirez MD on August 04, 2018 15:42 EST I personally evaluated and examined the patient in conjunction with the APC and agree with the assessment, treatment plan and disposition as recorded by the APC. Future Appointments ?? Diagnostic Tests Pending * Legionella Ag, Urine 08/04/18 * O&P Antigen Screen 08/04/18 * Stool Culture 08/04/18
--- OUTSIDE RECORDS SUMMARY | 2023-09-04 00:11 | XMS_ITS | Summary of Care ---
Author Name Unknown Organization [facility] Address [address] [place] [address]- [facility] [facility] [id number] Date(s): 06/23/17 - 06/23/17 [facility] [address] [facility] [id number] [phone] Discharge Diagnosis: Acute bronchitis Discharge Diagnosis: Atypical chest pain Discharge Disposition: [facility] HOME/ROUTINE DISCHARGE Attending Physician: Connor Her MD Admitting Physician: UNASSIGNED , ER DOCTOR Vital Signs Most recent to oldest [Reference Range]: 1 2 3 Temperature Oral [96.4-99.1 DegF] 98.4 DegF (06/23/17 8:00 PM) 98.3 DegF (06/23/17 5:15 PM) 98.3 DegF (06/23/17 3:00 PM) Heart Rate Monitored [60-100 bpm] 71 bpm (06/23/17 7:12 PM) Pulse Rate [60-100 bpm] 71 bpm (06/23/17 8:00 PM) 73 bpm (06/23/17 5:15 PM) 77 bpm (06/23/17 3:00 PM) Respiratory Rate [14-20] 12 *LOW* (06/23/17 8:00 PM) 18 (06/23/17 7:12 PM) 16 (06/23/17 5:15 PM) BP Obtained By Blood Pressure by Machine (06/23/17 8:00 PM) Blood Pressure by Machine (06/23/17 5:15 PM) Blood Pressure by Machine (06/23/17 3:00 PM) ED Laterality Right arm (06/23/17 8:00 PM) Left arm (06/23/17 5:15 PM) Left arm (06/23/17 3:00 PM) Weight, Actual kg 84.3 kg (10/16/17 3:00 PM) Weight, Actual kg - manual 84.3 kg (06/23/17 3:00 PM) Height cm 160.02 cm (06/23/17 6:59 PM) 160.02 cm (06/23/17 3:00 PM) Height Inches 63 inch(es) (06/23/17 6:59 PM) 63 inch(es) (06/23/17 3:00 PM) Body Surface Area 1.9358 (06/23/17 3:00 PM) Body Mass Index (BMI) 33 kg/m2 (06/23/17 3:00 PM) Blood Pressure [90-120/60-80 mmHg] 136/88mmHg *HI* (06/23/17 8:00 PM) 136/88mmHg *HI* (06/23/17 7:12 PM) 134/90mmHg *HI* (06/23/17 5:15 PM) Problem List Condition Effective Dates Status Health Status Inform ant Spondylosis of cervical joint(Confirmed) Active Hypertension(Confirmed) Active Allergies, Adverse Reactions, Alerts Substance Reaction Severity Status morphine Rash Active Medications aspirin 325 mg oral tablet 325 mg, = 1 tab(s), PO, 1xDaily, X 10 day(s), # 10 tab(s), 0 Refill(s), 06/23/17 19:43:00 EDT Start Date: 06/23/17 Stop Date: 07/03/17 Status: Ordered Tessalon Perles 100 mg oral capsule 100 mg =, 1 cap(s), PO, 3xDaily, X 7 day(s), # 21 cap(s), 0 Refill(s) Start Date: 06/23/17 Stop Date: 06/30/17 Status: Ordered Zithromax 500 mg oral tablet 500 mg =, 1 tab(s), PO, 1xDaily, X 5 day(s), # 5 tab(s), 0 Refill(s) Start Date: 06/23/17 Stop Date: 06/28/17 Status: Ordered Results Hematology Most recent to oldest [Reference Range]: 1 WBC [4.5-11.0 th/uL] 3.1 th/uL *LOW* (06/23/17 5:15 PM) RBC [3.60-5.40 mill/uL] 4.37 mill/uL (06/23/17 5:15 PM) HGB [12.0-16.0 g/dL] 13.0 g/dL (06/23/17 5:15 PM) HCT [37.0-47.0 %] 38.0 % (06/23/17 5:15 PM) MCV [80.0-100.0 fL] 87.1 fL (06/23/17:15 PM) MCH [26.0-32.0 pg] 29.7 pg (06/23/17:15 PM) MCHC [31.0-36.0 g/dL] 34.1 g/dL (06/23/17:15 PM) RDW [11.5-14.5 %] 13.5 % (06/23/17 5:15 PM) PLT [140-450 th/uL] 144 th/uL (06/23/17 5:15 PM) MPV [6.5-13.0 fL] 10.5 fL (06/23/17 5:15 PM) Segs [45.0-75.0 %] 43.2 % *LOW* (06/23/17 5:15 PM) Lymphs [24.0-44.0 %] 35.2 % (06/23/17 5:15 PM) [place] [0.0-10.0 %] 16.7 % *HI* (06/23/17 5:15 PM) Eos [0.0-6.0 %] 3.0 % (06/23/17 5:15 PM) Baso [0.0-2.0 %] 1.9 % (06/23/17 5:15 PM) Neutrophil, Abs [1.4-8.5 th/uL] 1.3 th/u L *LOW* (06/23/17 5:15 PM) Lymph, Abs [0.7-4.0 th/uL] 1.1 th/uL (06/23/17 5:15 PM) Monocyte, Abs [0.0-0.8 th/uL] 0.5 th/uL (06/23/17 5:15 PM) Eosinophil, Abs [0.0-0.4 th/uL] 0.1 th/u L (06/23/17 5:15 PM) Basophil, Abs [0.0-0.2 th/uL] 0.1 th/uL (06/23/17 5:15 PM) Coagulation Most recent to oldest [Reference Range]: 1 PT [9.4-13.4 second(s)] 9.9 second(s) (06/23/17 5:15 PM) INR 1.0 *NA* (06/23/17 5:15 PM) APTT [22.0-36.0 second(s)] 24.7 second(s ) (06/23/17 5:15 PM) Urinalysis Most recent to oldest [Reference Range]: 1 Color [Yellow] Yellow (06/23/17 5:20 PM) Appearance [Clear] Clear (06/23/17 5:20 PM) Spec Grav [1.003-1.030] 1.010 (06/23/17 5:20 PM) pH [4.5-8.0] 7.0 (06/23/17 5:20 PM) Protein [Negative] Negative (06/23/17 5:20 PM) Glucose [Negative] Negative (06/23/17 5:20 PM) Ketone [Negative] Negative (06/23/17 5:20 PM) Bilirubin [Negative] Negative (06/23/17 5:20 PM) Blood [Negative] Negative (06/23/17 5:20 PM) Urobilinogen [0.2-1.0 EU/DL] 0.2 EU/DL (06/23/17 5:20 PM) Leuk Est [Negative] Trace *ABN* (06/23/17 5:20 PM) Nitrite [Negative] Negative (06/23/17 5:20 PM) Nitrite [Negative] Negative (06/23/17 5:20 PM) RBC [0-6 /HPF] 2 /HPF (06/23/17 5:20 PM) WBC [0-6 /HPF] 3 /HPF (06/23/17 5:20 PM) Sq Epith [Few /HPF] Few /HPF (06/23/17 5:20 PM) Hyaline Cast [Few /LPF] Negative /LPF (06/23/17 5:20 PM) Bacteria [Negative /HPF] Negative /HPF (06/23/17 5:20 PM) General Chem Most recent to oldest [Reference Range]: 1 Sodium [136-145 mmol/L] 140 mmol/L (06/23/17 5:15 PM) Potassium [3.5-5.1 mmol/L] 3.9 mmol/L (06/23/17 5:15 PM) Chloride [98-107 mmol/L] 102 mmol/L (06/23/17 5:15 PM) Carbon Dioxide [21-32 mmol/L] 27 mmol/L (06/23/17 5:15 PM) Glucose [70-99 mg/dL] 111 mg/dL *HI* (06/23/17 5:15 PM) BUN [6-26 mg/dL] 8 mg/dL (06/23/17 5:15 PM) Creatinine [0.30-1.30 mg/dL] 0.63 mg/dL (06/23/17 5:15 PM) BUN/Creatinine [7-34] 13 (06/23/17 5:15 PM) Calcium [8.50-10.10 mg/dL] 8.50 mg/dL (06/23/17 5:15 PM) T Protein [6.4-8.2 g/dL] 7.4 g/dL (06/23/17 5:15 PM) Albumin [3.4-5.0 g/dL] 4.1 g/dL (06/23/17 5:15 PM) Globulin [2.4-4.2 g/dL] 3.3 g/dL (06/23/17 5:15 PM) Alb/Glob [0.8-1.6] 1.2 (06/23/17 5:15 PM) Bili Total [0.2-1.0 mg/dL] 0.2 mg/dL (06/23/17 5:15 PM) Alk Phos [45-117 IU/L] 92 IU/L (06/23/17 5:15 PM) ALT [12-78 IU/L] 37 IU/L (06/23/17 5:15 PM) AST [7-37 IU/L] 34 IU/L (06/23/17 5:15 PM) Anion Gap [5-16] 10 (06/23/17 5:15 PM) Lipase [73-393 U/L] 46 U/L *LOW* (06/23/17 5:15 PM) Magnesium [1.60-2.40 mg/dL] 2.30 mg/dL (06/23/17 5:15 PM) eGFR (nonAfrAm) [>=60 mL/min/1.73 m2] >6 0 mL/min/1.73 m2 (06/23/17 5:15 PM) eGFR (AfrAm) [>=60 mL/min/1.73 m2] >60 m L/min/1.73 m2 (06/23/17 5:15 PM) eCrCl (Drug Dosing) [70-135 mL/min] 95 m L/min 1 (06/23/17 5:15 PM) 1Result Comment: Calculated by Discern Expert using the Cockcroft-Gault formula and the patients Dosing weight of 64.86 because the patients actual weight is 20% > than the IBW of 51.90. Cardiac Markers Most recent to oldest [Reference Range]: 1 CK [26-192 IU/L] 78 IU/L (06/23/17 5:15 PM) Troponin-T [0.000-0.029 ng/mL] .010 ng/m L 1 (06/23/17 5:15 PM) BN Peptide [0.0-100.0 pg/mL] 48.9 pg/mL (06/23/17 5:15 PM) 1Result Comment: ~LESS THAN Procedures Procedure Date Related Diagnosis Body Site ROUTINE VENIPUNCTURE 06/23/17 Social History Social History Type Response Smoking Status Patient quit smoking within last 12 months Assessment and Plan Future Appointments ??
--- OUTSIDE RECORDS SUMMARY | 2023-09-04 00:11 | XMS_ITS | Summary of Care ---
Author Name Unknown Organization [facility] Address [address] [place] [address]- Care Team Providers Care Road Engineer Name Role Phone Darlene Cohen Primary Care Physician [phone] Encounter [facility] [id number] Date(s): 06/16/23 - 06/16/23 [facility] [address] [facility] [address] [phone] Encounter Diagnosis Epistaxis(Discharge Diagnosis) - 06/16/23 Discharge Disposition: HOME OR SELF CARE Attending Physician: Zaid Fortune MD Admitting Physician: UNASSIGNED , ER DOCTOR Allergies, Adverse Reactions, Alerts Substance Reaction Severity Status naproxen rash Mild Active morphine Rash Active Assessment and Plan Extracted from: Title:ED Visit Note Author:Zaid Fortune MD Date:06/16/23 Assessment/Plan Diagnosis List 1.??Epistaxis??(Epistaxis)(R04.0) Nose Bleed Reevaluation??(Nose Bleed Reevaluation)([id number]) Primary Diagnosis Statement:?n/a ? Condition:??stable ?? Medically Cleared:??n/a ?? Disposition:??Discharged ?? Counseled:??Patient??regarding diagnosis, results and treatment plan. ?? Discharge??Prescriptions:?,? Controlled Substance Prescribed:??No ?? Acute Pain Exception:??_ ?? E-Prescribe:??n/a ? Emergency Medical Condition Attestation: I hereby attest that, upon arrival in the Emergency Department, the patient met the definition of Emergency Medical Condition pursuant to [place] Statute 627.732 (16) which states: ?? Emergency medical condition means a medical condition manifesting itself by acute symptoms of sufficient severity, which may include severe pain, such that the absence of immediate medical attention could reasonably be expected to result in any of the following: (a) Serious jeopardy to patient health. (b) Serious impairment to bodily functions. (c) Serious dysfunction of any bodily organ or part.? Patient Education Epistaxis (Adult) Medications *Recommended Immunization Pneumococcal Vaccine TO BE [...] 4xDaily, # 8 g, 0 Refill(s), Pharmacy: [id number], 2 puff(s) INH 4xDaily, 1, 157.48, cm, 07/20/21 4:23:00 EST, Height cm, 82.25, kg, 12/28/22 0:36:00 EDT, Weight, Actual kg Start Date: 12/28/22 Status: Ordered Althea 180 mg oral tablet 180 mg, = 1 tab(s), PO, 1xDaily, # 30 tab(s), 0 Refill(s), 12/28/22 4:44:00 AM EDT, Pharmacy: [id number], 1 tab(s) PO 1xDaily, 1, 157.48, cm, 07/20/21 4:23:00 EST, Height cm, 82.25, kg, 12/28/22 0:36:00 EDT, Weight, Actual kg Start Date: 12/28/22 Status: Ordered aspirin 81 mg oral tablet, chewable 81 mg =, 1 tab(s), PO, 1xDaily, 0 Refill(s), 1 Start Date: 07/20/21 Status: Ordered Flexeril 10 mg oral tablet [...] [Reference Range]: 1 Temperature Oral [96.8-101 DegF] 98.6 De gF (06/16/23 12:19 PM) Heart Rate Monitored [60-90 bpm] 69 bpm (06/16/23 2:30 PM) Pulse Rate [60-90 bpm] 74 bpm (06/16/23 12:19 PM) Respiratory Rate [12-20 br/min] 11 br/mi n *LOW* (06/16/23 2:30 PM) Mean Arterial Pressure, Cuff [65 mmHg] 8 6 mmHg (06/16/23 2:30 PM) BP Obtained By Blood pressure by ruy montanez (06/16/23 2:30 PM) ED Laterality Left arm (06/16/23 2:30 PM) Blood Pressure [90-120/60-90 mmHg] 115/7 3mmHg (06/16/23 2:30 PM) Weight, Actual kg 84.4 kg (06/16/23 12:19 PM) Weight, Actual kg - manual 84.4 kg (06/16/23 12:19 PM) Type of Scale Used Standing (06/16/23 12:19 PM) Measured Weight Yes (06/16/23 12:19 PM) Height cm 157.48 cm (06/16/23 12:19 PM) EHUM Responses Feet/Inches (06/16/23 12:19 PM) Height Feet with Inches 5 ft (06/16/23 12:19 PM) Height Inches with Feet 2 inch(es) (06/16/23 12:19 PM) Height Inches 62 inch(es) (06/16/23 12:19 PM) Body Surface Area 1.9215 (06/16/23 12:19 PM) Body Mass Index (BMI) 34 kg/m2 (06/16/23 12:19 PM) [place] Body Weight Calculated 50.1 kg (06/16/23 12:19 PM) Social History Social History Type Response Smoking Status Never a smoker Sex Female Physician Emergency department Note * Zaid Fortune MD: PERFORM Event Display: ED Physician Notes Authored Date: Chief Complaint pt comes from home- states had a nose bleed this morning- states had some mucus with blood she coughed out- very little to no bleeding at this time- no thinners History of Present Illness Date/Time Seen:??06/16/2023 12:48:43 ?? Patient Provided History:??Yes Appliance Repair Technician used:??No History limitation:??None Independent History Source:??_ ?? Chief Complaint:??Reason for Visit Narrative: pt comes from home- states had a nose bleed this morning- states had some mucus with blood she coughed out- very little to no bleeding at this time- no thinners (06/16/23 12:19:00) Mode of Arrival:??ED Mode of Arrival: Ambulatory/WC/Carried (06/16/23 12:19:00) PCP:??Primary Care Physician:?Darlene Cohen Sex:??female Administrative Sex:??Female ?? HPI: Patient is a??68 Years??old??Female??presenting with a complaint of??nosebleed this morning. ??States it resolved prior to arrival. ??Describes it out of the left side of her nose. ??Denies any fall or trauma, no digital stimulation, no blood thinners, no history of hypertension. ?? Physical Exam Vitals & Measurements Initial: T: 98.6 ??F (Oral) HR: 74 (Peripheral) BP: 150/76 RR: 18 SpO2: 98% WT: 84.4 kg BMI: 34 ?? Latest: HR: 69 (Peripheral) BP: 115/73 RR: 11 SpO2: 96% General:?alert,??no acute distress. Skin:?warm,??dry. Head:?no??trauma.?normocephalic Neck:?? trachea??midline,??no??adenopathy,??no??tenderness. ENT: Mucous membranes??moist??No pharyngeal erythema or tonsilar hypertrophy??TMs clear bilaterally??right nares unremarkable, left nare with small??area of dried bleeding/erosion to the anterior/medial turbinate, no active bleeding Eye:?normal??conjunctiva, sclera??clear. Cardiovascular:?regular??rate and rhythm,??normal??peripheral perfusion. Respiratory:?? lungs??CTA, respirations??non-labored. Chest Wall:?no??deformity. Gastrointestinal:?soft,??non-distended,??no??tenderness,??no??guarding. Extremities:?no??deformity,??no??trauma. Neurological:?? oriented??X4, LOC??appropriate for age, CN II-XII??intact, motor strength??equal & normal bilaterally, sensation??equal & normal bilaterally, speech??normal. Psychiatric:?cooperative, affect??appropriate for age,??normal??judgement,??normalthoughts. Medical Decision Making Differential Diagnosis: Anterior epistaxis, posterior epistaxis, coagulopathy ?? Consideration of Admission/Observation:??_ ?? Chronic conditions affecting care: [] _ _ _ ?? MDM Rationale: Patient is a??68 Years??old??Female??presenting with a complaint of??nosebleed this morning. ??States it resolved prior to arrival. ??Describes it out of the left side of her nose. ??Denies any fall or trauma, no digital stimulation, no blood thinners, no history of hypertension. Exam right nares unremarkable, left nare with small??area of dried bleeding/erosion to the anterior/medial turbinate, no active bleeding. Pt observed in the ED for 2+ hours, no recurrence of bleeding. Pt d/c home with supportive care and instructed to return to the ER immediately for new or worsening symptoms. ?? Discussion of management with other physician/healthcare [...] Sepsis:??n/a ?? Stroke:??n/a ?? STEMI:??n/a ?? Reexamination/Reevaluation Date/Time:??06/16/2023 14:52:39 ?? Most Recent Vital Signs: Temperature Oral: 98.6 DegF (06/16/23 12:19:00) Pulse Rate: 74 bpm (06/16/23 12:19:00) Heart Rate Monitored: 71 bpm (06/16/23 13:00:00) Respiratory Rate: 16 br/min (06/16/23 13:00:00) Systolic Blood Pressure:??139 mmHg??High (06/16/23 13:00:00) Diastolic Blood Pressure: 76 mmHg (06/16/23 13:00:00) SpO2: 97 % (06/16/23 13:00:00) ?? Orthostatics:??n/a ?? Reevaluation: VSS ? Assessment/Plan Diagnosis List 1.??Epistaxis??(Epistaxis)(R04.0) Nose Bleed Reevaluation??(Nose Bleed Reevaluation)([id number]) Primary Diagnosis Statement:?n/a ?? Condition:??stable Medically Cleared:??n/a Disposition:??Discharged Counseled:??Patient??regarding diagnosis, results and treatment plan. ?? Discharge??Prescriptions:?,? Controlled Substance Prescribed:??No Acute Pain Exception:??_ E-Prescribe:??n/a ?? Emergency Medical Condition Attestation: I hereby attest that, upon arrival in the Emergency Department, the patient met the definition of Emergency Medical Condition pursuant to [place] Statute 627.732 (16) which states: ?? Emergency medical condition means a medical condition manifesting itself by acute symptoms of sufficient severity, which may include severe pain, such that the absence of immediate medical attention could reasonably be expected to result in any of the following: (a) Serious jeopardy to patient health. (b) Serious impairment to bodily functions. (c) Serious dysfunction of any bodily organ or part.? Patient Education Epistaxis (Adult) Follow Up Follow Up with??Follow up with primary care provider When??Within 24 to 48 Hours Comments: Return immediately if symptoms worsen Where: Allergies naproxen??(rash) morphine??(Rash) Problem List/Past Medical History Ongoing Acute cervical radiculopathy Hypertension Obese Spondylosis of cervical joint Historical Arthritis Fibromyalgia Procedure/Surgical History ??? delivery???Laryngotomy with removal of tumor???Tubal ligation???Uterine cancer Social History Tobacco Tobacco Use: Never a smoker (06/16/23) Alcohol Denies use Diagnostic Results Radiology Results??(06/15/23 00:00 - 06/16/23 14:53) Electronically Signed By: Zaid Fortune MD, on 06.16.2023 02:53 PM Electronically Signed By: Patient Care team information Care Team Personnel Name: Darlene Cohen Position: Office Physician Member Role: PCP Lifetime Address: Address: [address] [place] [phone] [place] Name: Zaid Fortune MD Position: ED Physician Member Role: Attending Physician Address: Address: [address] [place] [address] [place]
--- OUTSIDE RECORDS SUMMARY | 2023-09-04 00:11 | XMS_ITS | Summary of Care ---
Author Name Unknown Organization [facility] Address [address] [place] [address]- Encounter [facility] [id number] Date(s): 04/07/18 - 04/07/18 [facility] [address] [place] [id number] [phone] Discharge Disposition: [facility] HOME/ROUTINE DISCHARGE Attending Physician: Ronald Vides MD Admitting Physician: UNASSIGNED , ER DOCTOR Vital Signs Most recent to oldest [Reference Range]: 1 2 3 Temperature Oral [96.4-99.1 DegF] 97.9 DegF (04/07/18 3:46 PM) 98.0 DegF (04/07/18 1:35 PM) Pulse Rate [60-100 bpm] 72 bpm (04/07/18 3:46 PM) 70 bpm (04/07/18 2:12 PM) 73 bpm (04/07/18 1:35 PM) Respiratory Rate [14-20] 18 (04/07/18 2:12 PM) 18 (04/07/18 1:35 PM) Mean Arterial Pressure, Cuff 105 mmHg (04/07/18 3:46 PM) 95 mmHg (04/07/18 2:12 PM) BP Obtained By Blood Pressure by Machine (04/07/18 1:35 PM) Weight, Actual kg 81.4 kg (04/07/18 1:35 PM) Weight, Actual kg - manual 81.4 kg (04/07/18 1:35 PM) Height cm 157.48 cm (04/07/18 1:35 PM) Height Inches 62 inch(es) (04/07/18 1:35 PM) Body Surface Area 1.887 (04/07/18 1:35 PM) Body Mass Index (BMI) 33 kg/m2 (04/07/18 1:35 PM) Blood Pressure [90-120/60-80 mmHg] 128/94mmHg *HI* (04/07/18 3:46 PM) 140/78mmHg *HI* (04/07/18 2:12 PM) 127/79mmHg *HI* (04/07/18 1:35 PM) Problem List Condition Effective Dates Status Health Status Inform ant Spondylosis of cervical joint(Confirmed) Active Hypertension(Confirmed) Active Allergies, Adverse Reactions, Alerts Substance Reaction Severity Status morphine Rash Active Medications Anaprox-DS 550 mg oral tablet 550 mg, = 1 tab(s), PO, 2xDaily, PRN for pain, X 7 day(s), # 14 tab(s), 0 Refill(s), 04/07/18 15:17:00 EDT Start Date: 04/07/18 Stop Date: 04/14/18 Status: Ordered PercoCET 5/325 mg oral tablet 1 tab(s), PO, q4hr, PRN for pain, X 3 day(s), # 12 tab(s), 0 Refill(s) Start Date: 04/07/18 Stop Date: 04/10/18 Status: Ordered Zanaflex 2 mg oral tablet 4 mg, = 2 tab(s), PO, q8hr, X 5 day(s), # 30 tab(s), 0 Refill(s), 04/07/18 15:17:00 EDT Start Date: 04/07/18 Stop Date: 04/12/18 Status: Ordered Results Urinalysis Most recent to oldest [Reference Range]: 1 Color [Yellow] Dark Yellow (04/07/18 2:01 PM) Appearance [Clear] Clear (04/07/18 2:01 PM) Spec Grav [1.003-1.030] >=1.030 *ABN* (04/07/18 2:01 PM) pH [5.0-8.0] 6.0 (04/07/18 2:01 PM) Protein [Negative] Trace *ABN* (04/07/18 2:01 PM) Glucose [Negative] Negative (04/07/18 2:01 PM) Ketone [Negative] Trace *ABN* (04/07/18 2:01 PM) Bilirubin [Negative] Negative (04/07/18 2:01 PM) Blood Negative (04/07/18 2:01 PM) Urobilinogen 1.0 EU/DL (04/07/18 2:01 PM) Leuk Est [Negative] Negative (04/07/18 2:01 PM) Nitrite [Negative] Negative (04/07/18 2:01 PM) Nitrite [Negative] Negative (04/07/18 2:01 PM) RBC [0-6 /HPF] 3 /HPF (04/07/18 2:01 PM) WBC [0-6 /HPF] 2 /HPF (04/07/18 2:01 PM) Sq Epith [Few /HPF] Few /HPF (04/07/18 2:01 PM) Hyaline Cast [Few /LPF] Few /LPF (04/07/18 2:01 PM) Bacteria [Negative /HPF] Negative /HPF (04/07/18 2:01 PM) Procedures Procedure Date Related Diagnosis Body Site Uterine cancer Social History Social History Type Response Smoking Status Patient quit smoking greater than 12 months ago Assessment and Plan Future Appointments ??
--- OUTSIDE RECORDS SUMMARY | 2023-09-04 00:12 | XMS_ITS | Summary of Care ---
Author Name Unknown Organization [facility] Address [address] [place] [address]- Care Team Providers Care Java Consultant Name Role Phone Darlene Cohen Primary Care Physician Encounter [facility] [id number] Date(s): 06/06/23 - 06/06/23 [facility] [address] [facility] [address]- [phone] Encounter Diagnosis Abrasion(Discharge Diagnosis) - 06/06/23 Discharge Disposition: HOME OR SELF CARE Attending Physician: Figueroa Wu MD Admitting Physician: UNASSIGNED , ER DOCTOR Allergies, Adverse Reactions, Alerts Substance Reaction Severity Status naproxen rash Mild Active morphine Rash Active Assessment and Plan Extracted from: Title:ED Visit Note Author:Jacqueline Cadena e:06/06/23 Assessment/Plan Diagnosis List 1.??Abrasion??(Other injury of unspecified body region, initial encounter)(T14.8XXA) Ear discharge??(Ear discharge)([id number]) Primary Diagnosis Statement:?n/a ? Condition:??stable ?? Medically Cleared:??n/a ?? Disposition:??Discharged ?? Counseled:??Patient??regarding diagnosis, results and treatment plan. ?? Discharge??Prescriptions:?,? Controlled Substance Prescribed:??No ?? Acute Pain Exception:??_ ?? E-Prescribe:??n/a ? Emergency Medical Condition Attestation: I hereby attest that, upon arrival in the Emergency Department, the patient met the definition of Emergency Medical Condition pursuant to [place] Statute 627.732 (16) which states: ?? Emergency [...] any bodily organ or part.? Patient Education Abrasions Medications *Recommended Immunization Pneumococcal Vaccine TO BE [...] 4xDaily, # 8 g, 0 Refill(s), Pharmacy: [id number], 2 puff(s) INH 4xDaily, 1, 157.48, cm, 07/20/21 4:23:00 EST, Height cm, 82.25, kg, 12/28/22 0:36:00 EDT, Weight, Actual kg Start Date: 12/28/22 Status: Ordered Althea 180 mg oral tablet 180 mg, = 1 tab(s), PO, 1xDaily, # 30 tab(s), 0 Refill(s), 12/28/22 4:44:00 AM EDT, Pharmacy: [id number], 1 tab(s) PO 1xDaily, 1, 157.48, cm, [...] [Reference Range]: 1 Temperature Oral [96.8-101 DegF] 98.3 De gF (06/06/23 4:29 AM) Pulse Rate [60-90 bpm] 74 bpm (06/06/23 4:29 AM) BP Obtained By Blood pressure by ruy montanez (06/06/23 4:29 AM) Blood Pressure [90-120/60-90 mmHg] 147/8 5mmHg *HI* (06/06/23 4:29 AM) Weight, Actual kg 83.5 kg (06/06/23 4:29 AM) Weight, Actual kg - manual 83.5 kg (06/06/23 4:29 AM) Type of Scale Used Standing (06/06/23 4:29 AM) Measured Weight Yes (06/06/23 4:29 AM) Social History Social History Type Response Smoking Status Never a smoker Sex Female Physician Emergency department Note * Figueroa Wu MD: MODIFY Figueroa Wu MD: MODIFY Event Display: ED Physician Notes Authored Date: [id number] Chief Complaint Pt woke with some bleeding from her left ear, pt reports no head injury, no falls, no pain. No bleeding seen in [facility] History of Present Illness Date/Time Seen:??06/06/2023 06:10:41 romain L[place] for and in the presence of ??Figueroa Lopez?? Signed by: Nick Loo?? 06/06/2023 06:10:44 ?? Patient Provided History:??Yes Patient Assistant used:??No History limitation:??None Independent History Source:??_ ?? Chief Complaint:??Reason for Visit Narrative: Pt woke with some bleeding from her left ear, pt reports no head injury, no falls, no pain. No bleeding seen in [facility] (06/06/23 04:29:00) Mode of Arrival:??ED Mode of Arrival: Ambulatory/WC/Carried (06/06/23 04:29:00) PCP:??Primary Care Physician:?Darlene Cohen Sex:??female Administrative Sex:??Female ?? HPI: 68 y/o female with a PMH of acute cervical radiculopathy, arthritis, fibromyalgia, HTN, obesity, spondylosis of cervical joint, gastritis, uterine cancer, anxiety, depression presents to the ER complaining of blood in her left ear. Pt reports that she was cleaning her ear this morning when she noticed blood. She denies having had any ear infections recently.Pt denies any other symptoms. There are no further concerns at this time. ?? Physical Exam Vitals & Measurements Initial: T: 98.3 ??F (Oral) HR: 74 (Peripheral) BP: 147/85 SpO2: 95% WT: 83.5 kg General:?alert,??no acute distress. Skin:?warm,??dry. Head:?no??trauma.?normocephalic Neck:?? trachea??midline,??no??adenopathy,??no??tenderness. ENT: Mucous membranes??moist??_??_??abrasion to left ear canal Eye:?normal??conjunctiva, sclera??clear. Cardiovascular:?regular??rate and rhythm,??normal??peripheral perfusion. Respiratory:?? lungs??CTA, respirations??non-labored. Chest Wall:?no??deformity. Gastrointestinal:?soft,??non-distended,??no??tenderness,??no??guarding. Extremities:?no??deformity,??no??trauma. Neurological:?? oriented??X4, LOC??appropriate for age, CN II-XII??intact, motor strength??equal & normal bilaterally, sensation??equal & normal bilaterally, speech??normal. Psychiatric:?cooperative, affect??appropriate for age,??normal??judgement,??normalthoughts.?? Medical Decision Making Differential Diagnosis: [abrasion, tympanic membrane perforation] ?? Consideration of Admission/Observation:??Based on the differential diagnosis documented above I considered escalation of care including admission/observation. ?? Chronic conditions affecting care: [acute cervical radiculopathy, arthritis, fibromyalgia, HTN, obesity, spondylosis of cervical joint, gastritis, uterine cancer, anxiety, depression] _ _ _ ?? MDM Rationale: [] ?? A 68-year-old female comes ER as mentioned in HPI. ??Abrasions noted in ER. ??No laceration tympanic membrane intact. ??We will discharge I spoke with the patient and/or care givers. I have explained the patient's condition diagnoses andtreatment plan based on information available to me at this time. I have answered the patient's and/or caregivers questions and addressed my concerns. The patient and/or caregivers have a good and und erstanding of the patient's diagnosis, condition and treatment plan as can be expected at this point. The vital signs have been stable. The patient's condition is stable and appropriate for dischargefrom emergency Department. ?? The patient will pursue further outpatient evaluation with the primary care physician or other designated or consulting physicians as outlined in the discharge instructions. The patient and/or caregivers are agreeable to this plan of care and follow-up instructions have been explained in detail. The patient's and/or caregivers have received these instructions in written form and have expressed understanding of the discharge instructions. The patient and/or caregivers are aware that any significant change in condition or worsening symptoms should prompt an immediate return to this or the closest emergency department or call 911.? Discussion of management with other physician/healthcare provider: [...] Sepsis:??n/a ?? Stroke:??n/a ?? STEMI:??n/a ?? Reexamination/Reevaluation Date/Time:??06/06/2023 06:15:36 ?? Most Recent Vital Signs: Temperature Oral: 98.3 DegF (06/06/23 04:29:00) Pulse Rate: 74 bpm (06/06/23 04:29:00) Systolic Blood Pressure:??147 mmHg??High (06/06/23 04:29:00) Diastolic Blood Pressure: 85 mmHg (06/06/23 04:29:00) Oxygen Therapy: Room air (06/06/23 04:29:00) SpO2: 95 % (06/06/23 04:29:00) ?? Orthostatics:??n/a ?? Reevaluation: [] ? Assessment/Plan Diagnosis List 1.??Abrasion??(Other injury of unspecified body region, initial encounter)(T14.8XXA) Ear discharge??(Ear discharge)([id number]) Primary Diagnosis Statement:?n/a ?? Condition:??stable Medically Cleared:??n/a Disposition:??Discharged Counseled:??Patient??regarding diagnosis, results and treatment plan. ?? Discharge??Prescriptions:?,? Controlled Substance Prescribed:??No Acute Pain Exception:??_ E-Prescribe:??n/a ?? Emergency Medical Condition Attestation: I hereby attest that, upon arrival in the Emergency Department, the patient met the definition of Emergency Medical Condition pursuant to [place] Statute 627.732 (16) which states: ?? Emergency [...] any bodily organ or part.? Patient Education Abrasions Follow Up Follow Up with??Darlene Cohen, Family Medicine When??Within 3 - 5 Days Where: [facility] [place] [address] Supervising/Teaching Attestation CLINICIAN SCRIBE ATTESTATION] I personally performed the services described in this documentation, reviewed and edited the documentation which was dictated to the scribe in my presence, and it accurately records my words and actions. ?? I personally performed the services described in this documentation, reviewed and edited the documentation which was dictated to the scribe in my presence. ??It accurately records my words and actions. Additional information has been added to the chart with the use of Dubb software. Allergies naproxen??(rash) morphine??(Rash) Problem List/Past Medical History Ongoing Acute cervical radiculopathy Hypertension Obese Spondylosis of cervical joint Historical Arthritis Fibromyalgia Procedure/Surgical History ??? delivery???Laryngotomy with removal of tumor???Tubal ligation???Uterine cancer Social History Tobacco Tobacco Use: Never a smoker (06/06/23) Alcohol Denies use Diagnostic Results Radiology Results??(06/05/23 00:00 - 06/06/23 06:16) Electronically Signed By: Jacqueline Cadena, on 06.06.2023 06:16 AM Electronically Signed By: Figueroa Wu MD, on 06.06.2023 06:47 AM Patient Care team information Care Team Personnel Name: Darlene Cohen Position: Office Physician Member Role: PCP Lifetime Address: Address: [address] [place] [phone] [place] Name: Figueroa Wu MD Position: ED Physician Member Role: Attending Physician Address: Address: [address] [place] [phone] [place]
--- OUTSIDE RECORDS SUMMARY | 2023-09-04 00:12 | XMS_ITS | Summary of Care ---
Author Name Unknown Organization [facility] Address [address] [place] [address]- Encounter [facility] [id number] Date(s): 09/12/17 - 09/12/17 [facility] [address] [place] [id number]- [facility] [phone] Discharge Diagnosis: Cervical spondylosis Discharge Diagnosis: Arthritis of left knee Discharge Disposition: [facility] HOME/ROUTINE DISCHARGE Attending Physician: Luiz Gomes MD Admitting Physician: UNASSIGNED , ER DOCTOR Vital Signs Most recent to oldest [Refer ence Range]: 1 2 Temperature Oral [96.4-99.1 DegF] 98.0 D egF (09/12/17 10:57 AM) 98.2 DegF (09/12/17 8:58 AM) Pulse Rate [60-100 bpm] 71 bpm (09/12/17 10:57 AM) 74 bpm (09/12/17 8:58 AM) Respiratory Rate [14-20] 20 (09/12/17 10:57 AM) 18 (09/12/17 8:58 AM) Mean Arterial Pressure, Cuff 107 mmHg (09/12/17 10:57 AM) BP Obtained By Blood Pressure by Brett montanez (09/12/17 10:57 AM) Blood Pressure by Machine (09/12/17 8:58 AM) ED Laterality Right arm (09/12/17 10:57 AM) Right arm (09/12/17 8:58 AM) Weight, Actual kg 79.95 kg (09/12/17 8:58 AM) Weight, Actual kg - manual 79.95 kg (09/12/17 8:58 AM) Height cm 157.48 cm (09/12/17 8:58 AM) Height Inches 62 inch(es) (09/12/17 8:58 AM) Body Surface Area 1.8701 (09/12/17 8:58 AM) Body Mass Index (BMI) 32 kg/m2 (09/12/17 8:58 AM) Blood Pressure [90-120/60-80 mmHg] 150/86mmHg *HI* (09/12/17 10:57 AM) 141/83mmHg *HI* (09/12/17 8:58 AM) Problem List Condition Effective Dates Status Health Status Inform ant Spondylosis of cervical joint(Confirmed) Active Hypertension(Confirmed) Active Allergies, Adverse Reactions, Alerts Substance Reaction Severity Status morphine Rash Active Medications Flexeril 10 mg oral tablet 10 mg, = 1 tab(s), PO, 3xDaily, PRN for spasm, X 3 day(s), # 9 tab(s), 0 Refill(s), 09/12/17 10:43:00 EST Start Date: 09/12/17 Stop Date: 09/15/17 Status: Ordered Voltaren 50 mg oral enteric coated tablet 50 mg, = 1 tab(s), PO, 2xDaily, X 7 day(s), # 14 tab(s), 0 Refill(s), 09/12/17 10:43:00 EST Start Date: 09/12/17 Stop Date: 09/19/17 Status: Ordered Social History Social History Type Response Smoking Status Patient quit smoking greater than 12 months ago Assessment and Plan Future Appointments ??
--- OUTSIDE RECORDS SUMMARY | 2023-09-04 00:12 | XMS_ITS | Summary of Care ---
Author Name Unknown Organization [facility] Address [address] [place] [address]- Encounter [facility] [id number] Date(s): 05/08/17 - 05/08/17 [facility] [address] [facility] [address] [facility] [phone] Discharge Diagnosis: Cervical strain Discharge Disposition: [facility] HOME/ROUTINE DISCHARGE Attending Physician: Luiz Gomes MD Admitting Physician: UNASSIGNED , ER DOCTOR Vital Signs Most recent to oldest [Reference Range]: 1 Temperature Oral [96.4-99.1 DegF] 97.8 D egF (05/08/17 7:26 PM) Pulse Rate [60-100 bpm] 71 bpm (05/08/17 7:26 PM) Respiratory Rate [14-20] 18 (05/08/17 7:26 PM) BP Obtained By Blood Pressure by Brett montanez (05/08/17 7:26 PM) Weight, Actual kg 81.81 kg (05/08/17 7:26 PM) Weight, Actual kg - manual 81.81 kg (05/08/17 7:26 PM) Height cm 160.02 cm (05/08/17 7:26 PM) Height Inches 63 inch(es) (05/08/17 7:26 PM) Body Surface Area 1.9069 (05/08/17 7:26 PM) Body Mass Index (BMI) 32 kg/m2 (05/08/17 7:26 PM) Blood Pressure [90-120/60-80 mmHg] 144/8 0mmHg *HI* (05/08/17 7:26 PM) Problem List Condition Effective Dates Status Health Status Inform ant Spondylosis of cervical joint(Confirmed) Active Hypertension(Confirmed) Active Allergies, Adverse Reactions, Alerts Substance Reaction Severity Status morphine Rash Active Medications baclofen 10 mg oral tablet 10 mg =, 1 tab(s), PO, 3xDaily, # 21 tab(s), 0 Refill(s) Start Date: 05/08/17 Stop Date: 05/15/17 Status: Ordered Voltaren 50 mg oral enteric coated tablet 50 mg, = 1 tab(s), PO, 3xDaily, # 21 tab(s), 0 Refill(s), 05/08/17 22:08:00 EDT Start Date: 05/08/17 Stop Date: 05/15/17 Status: Ordered Procedures Procedure Date Related Diagnosis Body Site delivery Social History Social History Type Response Smoking Status Patient quit smoking greater than 12 months ago Assessment and Plan Future Appointments ??
--- OUTSIDE RECORDS SUMMARY | 2023-09-04 00:12 | XMS_ITS | Summary of Care ---
Author Name Unknown Organization [facility] Address [address] [place] [address]- Care Team Providers Care Market Development Manager Name Role Phone Darlene Cohen Primary Care Physician Encounter [facility] [id number] Date(s): 12/28/22 - 12/28/22 [facility] [address] [facility] [address] [phone] Encounter Diagnosis Cough in adult(Discharge Diagnosis) - 12/28/22 Bronchospasm(Discharge Diagnosis) - 12/28/22 Discharge Disposition: HOME OR SELF CARE Attending Physician: Luiz Gomes MD Admitting Physician: UNASSIGNED , ER DOCTOR Allergies, Adverse Reactions, Alerts Substance Reaction Severity Status naproxen rash Mild Active morphine Rash Active Assessment and Plan Extracted from: Title:ED Visit Note Author:Marco A Gomes MD Date:12/28/22 Assessment/Plan Diagnosis List 1.??Cough in adult??(Cough, unspecified)(R05.9) 2.??Bronchospasm??(Acute bronchospasm)(J98.01) SOB - Shortness of breath??(SOB - Shortness of breath)([id number]) Orders: albuterol, 2 puff(s), INH, 4xDaily, # 8 g, 0 Refill(s), Pharmacy: [id number], 2 puff(s) INH 4xDaily, 1, 157.48, cm, 07/20/21 4:23:00 EST, Height cm, 82.25, kg, 12/28/22 0:36:00 EDT, Weight, Actual kg fexofenadine, 180 mg, = 1 tab(s), PO, 1xDaily, # 30 tab(s), 0 Refill(s), 12/28/22 4:44:00 EDT, Pharmacy: [id number], 1 tab(s) PO 1xDaily, 1, 157.48, cm, 07/20/21 4:23:00 EST, Height cm, 82.25, kg, 12/28/22 0:36:00 EDT, Weight, Actual kg Discharge Patient Primary Diagnosis Statement:?n/a ? Condition:??stable ?? Medically Cleared:??n/a ?? Disposition:??Discharged ?? Counseled:??Patient??regarding diagnosis, results and treatment plan. ?? Discharge??Prescriptions:?Althea 180 mg oral tablet ?180mg=1??tab(s),??PO,??1xDaily,??30??tab(s),??0 refills,??12/28/22 4:44:00 EDT ?Albuterol (Eqv-ProAir HFA) 90 mcg/inh inhalation aerosol ?2??puff(s),??INH,??4xDaily,??8??g,??0 refills,??12/28/22 4:44:00 EDT ? Controlled Substance Prescribed:??No ?? Acute Pain Exception:??_ ?? E-Prescribe:??Yes ? Emergency Medical Condition Attestation: I hereby attest that, upon arrival in the Emergency Department, the patient met the definition of Emergency Medical Condition pursuant to [place] Statute 627.732 (16) which states: ?? Emergency [...] any bodily organ or part.? Patient Education Cough, Chronic, Uncertain Cause (Adult) Bronchospasm (Adult) Medications *Recommended Immunization Pneumococcal Vaccine TO BE ADMINISTERED OUTPATIENT, Based on screening during your hospitalization, it is recommended that you receive a pneumococcal vaccine. Please follow up with your primary care physician, [facility] pharmacy, or other outpatient p... Start Date: 07/20/21 Status: Ordered Albuterol (Eqv-ProAir HFA) 90 mcg/inh inhalation aerosol 2 puff(s), INH, 4xDaily, # 8 g, 0 Refill(s), Pharmacy: [address], 2 puff(s) INH 4xDaily, 1, 157.48, cm, 07/20/21 4:23:00 EST, Height cm, 82.25, kg, 12/28/22 0:36:00 EDT, Weight, Actual kg Start Date: 12/28/22 Status: Ordered Althea 180 mg oral tablet 180 mg, = 1 tab(s), PO, 1xDaily, # 30 tab(s), 0 Refill(s), 12/28/22 4:44:00 EDT, Pharmacy: [address], 1 tab(s) PO 1xDaily, 1, 157.48, cm, [...] # 15 tab(s), 0 Refill(s), 08/12/20 10:07:00 EST, 1 Start Date: 08/12/20 Status: Ordered lisinopril 10 mg, PO, 1xDaily, 0 Refill(s), 07/20/21 11:33:00 EST, 1 Start Date: 07/20/21 Status: Ordered Naprosyn 375 mg oral tablet 375 mg, = 1 tab(s), PO, 2xDaily, # 20 tab(s), 0 Refill(s), 08/12/20 10:07:00 EST, 1 Start Date: 08/12/20 Status: Ordered Tylenol 325 mg oral tablet 650 mg =, 2 tab(s), PO, q6hr, PRN as needed for pain, 1 Start Date: 02/13/20 Status: Ordered Vitamin B12 1000 mcg oral tablet 1,000 mcg, = 1 tab(s), PO, 1xDaily, 02/13/20 9:22:00 EDT, 1 Start Date: 02/13/20 Status: Ordered Vitamin C 1000 mg oral tablet 1,000 mg, = 1 tab(s), PO, 1xDaily, 02/13/20 9:22:00 EDT, 1 Start Date: 02/13/20 Status: Ordered Vitamin D3 1000 intl units oral capsule 1,000 Intl-Unit, = 1 cap(s), PO, 1xDaily, 02/13/20 9:22:00 EDT, 1 Start Date: 02/13/20 Status: Ordered Problem List Condition Confirmation Course Effective Dates Status H ealth Status Informant Acute cervical radiculopathy Confirmed Active Spondylosis of cervical joint Confirmed Active Hypertension Confirmed Active Obese Confirmed Active Vital Signs Most recent to oldest [Reference Range]: 1 Temperature Oral [96.44-99.14 DegF] 97.9 DegF (12/28/22 2:58 AM) Heart Rate Monitored [60-110 bpm] 67 bpm (12/28/22 5:36 AM) Pulse Rate [60-110 bpm] 58 bpm *LOW* (12/28/22 2:58 AM) Respiratory Rate [12-20 br/min] 14 br/mi n (12/28/22 3:46 AM) Mean Arterial Pressure, Cuff 88 mmHg (12/28/22 5:36 AM) BP Obtained By Blood pressure by ruy montanez (12/28/22 12:36 AM) Blood Pressure [90-120/60-90 mmHg] 131/6 9mmHg *HI* (12/28/22 5:36 AM) Weight, Actual kg 82.25 kg (12/28/22 12:36 AM) Weight, Actual kg - manual 82.25 kg (12/28/22 12:36 AM) Type of Scale Used Standing (12/28/22 12:36 AM) Measured Weight Yes (12/28/22 12:36 AM) Social History Social History Type Response Smoking Status Patient quit smoking greater than 12 months ago Sex Female EKG study * Event Display: EKG. Physician Emergency department Note * Luiz Gomes MD: PERFORM Event Display: ED Physician Notes Authored Date: [id number] Chief Complaint The pt says that she was asleep and started having SOB. She said that this happened to her about 6 mos ago but ??this time it was worse. History of Present Illness 12/28/2022 04:32:23 Patient comes to ER due to??productive cough??and shortness of breath for the past 24 hours.?? Denies any fever, chills,??or productive cough.?? No other complaints Physical Exam Vitals & Measurements Initial: T: 97.7 ??F (Oral) HR: 65 (Peripheral) BP: 117/76 RR: 22 SpO2: 98% WT: 82.25 kg ?? Latest: T: 97.9 ??F (Oral) HR: 60 (Peripheral) BP: 127/67 RR: 14 SpO2: 96% General: Alert and oriented x4, speaking in complete sentences. ??Afebrile. ??No oppressive chest pain or retrosternal burning. ??No respiratory distress. ??Coherent. HEENT: Moist oral mucosa, no nasal flaring. eom: WNL, no oropharynx erythema or plaques. Head: Normocephalic, atraumatic Neck: Full range of motion, no JVD Heart: Regular rhythm, no murmurs Lungs: Clear to auscultation. ??No wheezing, rhonchi, crackles or rales Chest: Symmetric expansion. ??No crepitus. ??No contusion ecchymosis. Abdomen: Soft and depressible, bowel sounds: Positive, no point tenderness, guarding or rebound. ??McBurney's: Negative, Dasilva sign: Negative, Rovsing sign: Negative Back: Full range of motion, no direct thoracolumbar spine tenderness palpation. Extremities: Full range of motion. ??No joint or long bone tenderness at palpation. ??All compartments are soft and depressible. ??No acute VASCULO-NEURO deficit of any extremity. Skin: Normal for ethnicity, no rash, adequate temperature to palpation Neuro: Alert and oriented x4, coherent, cooperative, cranial nerves: No deficits, no meningeal signs, GCS: 15/15 Psychiatric: Alert and oriented x4, approachable, cooperative, relaxed,?Organized thoughts. Medical Decision Making Differential Diagnosis: [Seasonal allergy, acute bronchospasm,??URI] ?? Consideration of Admission/Observation:??_ ?? Chronic conditions affecting care: [] _ _ _ ?? MDM Rationale: [Labs and studies focused on addressing patient's HPI and chief complaint.] ?? Discussion of management with other physician/healthcare provider: [] _ _ _ _ ?? External Notes Reviewed: [] _ _ _ _ ?? Independent Interpretation: EKG: My independent interpretation is:??n/a Rhythm Strip: My independent interpretation is:??n/a X-ray:??Chest x-ray results reviewed and discussed in detail with patient. Ultrasound: My independent interpretation is:??n/a CT: My [...] Health including:??[]?? _ _ _ _ ?? Sepsis:??n/a ?? Stroke:??n/a ?? STEMI:??n/a ?? Reexamination/Reevaluation 12/28/2022 04:42:06 Explained to patient that she could be having??bronchospasm at nighttime and therefore??having??repetitive??uncontrollable cough when she goes to bed.?? I do not believe patient has acute bronchitis.?? Will provide??prescription for??albuterol inhaler.?? Oriented to follow-up closely with primary care provider and use??[id number]??allergy medications.?? No other complaints Assessment/Plan Diagnosis List 1.??Cough in adult??(Cough, unspecified)(R05.9) 2.??Bronchospasm??(Acute bronchospasm)(J98.01) SOB - Shortness of breath??(SOB - Shortness of breath)([id number]) Orders: albuterol, 2 puff(s), INH, 4xDaily, # 8 g, 0 Refill(s), Pharmacy: [id number], 2 puff(s) INH 4xDaily, 1, 157.48, cm, 07/20/21 4:23:00 EST, Height cm, 82.25, kg, 12/28/22 0:36:00 EDT, Weight, Actual kg fexofenadine, 180 mg, = 1 tab(s), PO, 1xDaily, # 30 tab(s), 0 Refill(s), 12/28/22 4:44:00 EDT, Pharmacy: [id number], 1 tab(s) PO 1xDaily, 1, 157.48, cm, 07/20/21 4:23:00 EST, Height cm, 82.25, kg, 12/28/22 0:36:00 EDT, Weight, Actual kg Discharge Patient Primary Diagnosis Statement:?n/a ?? Condition:??stable Medically Cleared:??n/a Disposition:??Discharged Counseled:??Patient??regarding diagnosis, results and treatment plan. ?? Discharge??Prescriptions:?Althea 180 mg oral tablet ?180mg=1??tab(s),??PO,??1xDaily,??30??tab(s),??0 refills,??12/28/22 4:44:00 EDT ?Albuterol (Eqv-ProAir HFA) 90 mcg/inh inhalation aerosol ?2??puff(s),??INH,??4xDaily,??8??g,??0 refills,??12/28/22 4:44:00 EDT ?? Controlled Substance Prescribed:??No Acute Pain Exception:??_ E-Prescribe:??Yes ?? Emergency Medical Condition Attestation: I hereby attest that, upon arrival in the Emergency Department, the patient met the definition of Emergency Medical Condition pursuant to [place] Statute 627.732 (16) which states: ?? Emergency [...] any bodily organ or part.? Patient Education Cough, Chronic, Uncertain Cause (Adult) Bronchospasm (Adult) Follow Up Follow Up with??Darlene Cohen, Family Medicine When??Within 3 - 5 Days Where: [address] [place] [address] Allergies naproxen??(rash) morphine??(Rash) Problem List/Past Medical History Ongoing Acute cervical radiculopathy Hypertension Obese Spondylosis of cervical joint Historical Arthritis Fibromyalgia Procedure/Surgical History ??? delivery???Laryngotomy with removal of tumor???Tubal ligation???Uterine cancer Social History Tobacco Tobacco Use: Patient quit smoking greater than 12 months ago (12/28/22) Alcohol Denies use Lab Results Micro Rapid Testing?? LATEST RESULTS?? COVID 19 RESULT RT-PCR?? 12/28/22 00:32?? Negative? Diagnostic Results Radiology Results??(12/27/22 00:00 - 12/28/22 04:45) ?? Chest 1V - Diagnostic Imaging ?Performed on: 12/28/2022 01:27?? IMPRESSION: No acute cardiopulmonary disease.? INTERPRETED BY: Yfn Andrade ?? Finalized On: 12/28/2022 01:31 ?? Electronically Signed By: Luiz Gomes MD, on 12.28.2022 04:45 AM Electronically Signed By: XR Chest Single view * Event Display: Chest 1V Authored Date: * Event Display: Chest 1V Authored Date: Exam Date/Time: 12/28/2022 01:27 Finalized On: 12/28/2022 01:31 PROCEDURE: CHEST 1 VIEW CLINICAL INDICATION: dyspnea COMPARISON: 07/19/2021 FINDINGS: Single frontal view of the chest demonstrates the cardiomediastinal silhouette to be within normal limits. There are no pleural effusions or pneumothoraces identified. There are no focal areas of consolidation. IMPRESSION: No acute cardiopulmonary disease. RPRETED BY: Yfn Andrade Finalized On: 12/28/2022 01:31 Patient Care team information Care Team Personnel Name: Darlene Cohen Position: Office Physician Member Role: PCP [employer] Address: Address: [address] [place] [id number] [place] Name: Luiz Gomes MD Position: ED Physician Member Role: Attending Physician Address: Address: [address] [place] [phone] [place]
--- OUTSIDE RECORDS SUMMARY | 2023-09-04 00:12 | XMS_ITS | Summary of Care ---
Author Name Unknown Organization [facility] Address [address] [place] [address]- Encounter [facility] [id number] Date(s): 06/12/18 - 06/12/18 [facility] [address] [place] [id number] [phone] Encounter Diagnosis Hordeolum externum left upper eyelid(Final) - Personal history of nicotine dependence(Final) - Unspecified osteoarthritis, unspecified site(Final) - Ocular pain, left eye(Final) - Fibromyalgia(Final) - Discharge Disposition: [facility] HOME/ROUTINE DISCHARGE Attending Physician: Ronald Vides MD Admitting Physician: UNASSIGNED , ER DOCTOR Vital Signs Most recent to oldest [Reference Range]: 1 Temperature Oral [96.4-99.1 DegF] 98.2 D egF (06/12/18 8:48 AM) Pulse Rate [60-100 bpm] 74 bpm (06/12/18 8:48 AM) Respiratory Rate [14-20] 15 (06/12/18 8:48 AM) BP Obtained By Blood Pressure by Brett montanez (06/12/18 8:48 AM) ED Laterality Right arm (06/12/18 8:48 AM) Weight, Actual kg 82.3 kg (06/12/18 8:48 AM) Weight, Actual kg - manual 82.3 kg (06/12/18 8:48 AM) Height cm 157.48 cm (06/12/18 8:48 AM) Height Inches 62 inch(es) (06/12/18 8:48 AM) Body Surface Area 1.8974 (06/12/18 8:48 AM) Body Mass Index (BMI) 33 kg/m2 (06/12/18 8:48 AM) Blood Pressure [90-120/60-80 mmHg] 144/8 3mmHg *HI* (06/12/18 8:48 AM) Problem List Condition Effective Dates Status Health Status Inform ant Spondylosis of cervical joint(Confirmed) Active Hypertension(Confirmed) Active Allergies, Adverse Reactions, Alerts Substance Reaction Severity Status morphine Rash Active Medications Motrin 600 mg oral tablet 600 mg, = 1 tab(s), PO, q6hr, PRN for pain, X 7 day(s), # 20 tab(s), 0 Refill(s), 06/12/18 9:10:00 EDT, 1 Start Date: 06/12/18 Stop Date: 06/19/18 Status: Ordered Polytrim Ophthalmic Solution 1 drop(s), OPTH, q3hr, X 7 day(s), # 10 mL, 0 Refill(s), 1 Start Date: 06/12/18 Stop Date: 06/19/18 Status: Ordered Social History Social History Type Response Smoking Status Patient quit smoking greater than 12 months ago Assessment and Plan Future Appointments ??
--- OUTSIDE RECORDS SUMMARY | 2023-09-04 00:12 | XMS_ITS | Summary of Care ---
Author Name Unknown Organization [facility] Address [address] [place] [address]- Encounter [facility] [id number] Date(s): 03/03/20 - 03/03/20 [facility] [address] [place] [id number] [phone] Encounter Diagnosis Otitis externa of left ear(Discharge Diagnosis) - 03/03/20 Foreign body sensation in ear canal(Discharge Diagnosis) - 03/03/20 Discharge Disposition: [facility] HOME/ROUTINE DISCHARGE Attending Physician: Haritha Diaz MD Admitting Physician: UNASSIGNED , ER DOCTOR Vital Signs Most recent to oldest [Refer ence Range]: 1 2 Temperature Oral [96.4-99.1 DegF] 98.5 D egF (03/03/20 11:27 AM) Pulse Rate [60-100 bpm] 65 bpm (03/03/20 12:40 PM) 78 bpm (03/03/20 11:27 AM) Respiratory Rate [14-20] 16 (03/03/20 12:40 PM) 20 (03/03/20 11:27 AM) Mean Arterial Pressure, Cuff 100 mmHg (03/03/20 12:40 PM) BP Obtained By Blood Pressure by Brett montanez (03/03/20 12:40 PM) Blood Pressure by Machine (03/03/20 11:27 AM) ED Laterality Right arm (03/03/20 12:40 PM) Weight, Actual kg 80.6 kg (03/03/20 11:27 AM) Weight, Actual kg - manual 80.6 kg (03/03/20 11:27 AM) Type of Scale Used Standing (03/03/20 11:27 AM) Height cm 157.48 cm (03/03/20 11:27 AM) Height Inches 62 inch(es) (03/03/20 11:27 AM) Body Surface Area 1.8777 (03/03/20 11:27 AM) Body Mass Index (BMI) 33 kg/m2 (03/03/20 11:27 AM) Blood Pressure [90-120/60-80 mmHg] 137/81mmHg *HI* (03/03/20 12:40 PM) 142/85mmHg *HI* (03/03/20 11:27 AM) Problem List Condition Effective Dates Status Health Status Inform ant Spondylosis of cervical joint(Confirmed) Active Hypertension(Confirmed) Active Obese(Confirmed) Active Allergies, Adverse Reactions, Alerts Substance Reaction Severity Status morphine Rash Active Medications Naprosyn 500 mg oral tablet 500 mg =, 1 tab(s), PO, 2xDaily, with food, X 10 day(s), # 20 tab(s), 0 Refill(s), 1 Start Date: 03/03/20 Stop Date: 03/13/20 Status: Ordered ofloxacin 0.3% Otic Solution 5 drop(s), Otic, 2xDaily, Please instill 5 drops into left ear twice a day x 10 days, X 10 day(s), # 10 mL, 0 Refill(s), 1 Start Date: 03/03/20 Stop Date: 03/13/20 Status: Ordered Social History Social History Type Response Smoking Status Never a smoker Assessment and Plan Future Appointments ??
--- OUTSIDE RECORDS SUMMARY | 2023-09-04 00:12 | XMS_ITS | Summary of Care ---
Author Name Unknown Organization [facility] Address [address] [place] [address]- Care Team Providers Care Adobe Layer Helper Name Role Phone Darlene Cohen Primary Care Physician Encounter [facility] [id number] Date(s): 07/19/21 - 07/20/21 [facility] [address] [facility] [address] [phone] Encounter Diagnosis Palpitations(Discharge Diagnosis) - 07/20/21 Discharge Disposition: HOME OR SELF CARE Attending Physician: Bijan Cruz MD Admitting Physician: Bijan Cruz MD Allergies, Adverse Reactions, Alerts Substance Reaction Severity Status naproxen rash Mild Active morphine Rash Active Medications *Recommended Immunization Pneumococcal Vaccine TO BE ADMINISTERED OUTPATIENT, Based on screening during your hospitalization, it is recommended that you receive a pneumococcal vaccine. Please follow up with your primary care physician, [facility] pharmacy, or other outpatient p... Start Date: 07/20/21 Status: Ordered aspirin 81 mg oral tablet, chewable 81 mg =, 1 tab(s), PO, 1xDaily, 0 Refill(s), 1 Start Date: 07/20/21 Status: Ordered lisinopril 10 mg, PO, 1xDaily, 0 Refill(s), 07/20/21 11:33:00 EST, 1 Start Date: 07/20/21 Status: Ordered Problem List Condition Effective Dates Status Health Status Inform ant Acute cervical radiculopathy(Confirmed) Active Spondylosis of cervical joint(Confirmed) Active Hypertension(Confirmed) Active Obese(Confirmed) Active Procedures Procedure Date Related Diagnosis Body Site Status ROUTINE VENIPUNCTURE 07/19/21 Comp leted Results Laboratory List Name Date *Troponin-T 6hr 07/20/21 *PC CBG 07/20/21 TSH [place] Adult (reflex FT3, FT4, and/ or TPO as indicated) 07/20/21 Troponin-T 0 hr (initial) 07/20/21 CBC with Differential 07/19/21 CMP 07/19/21 D Dimer (DVT/PE/Qnt) (D-Dimer (DVT/PE/QN T)) 07/19/21 Troponin-T 0 hr (initial) 07/19/21 Most recent to oldest [Reference Range]: 1 2 3 eGFR (nonAfrAm) [>=60 mL/min/1.73 m2] >60 mL/min/1.73 m2 (07/19/21 8:32 PM) eGFR (AfrAm) [>=60 mL/min/1.73 m2] >60 mL/min/1.73 m2 (07/19/21 8:32 PM) PC CBG [70-99 mg/dL] 92 mg/dL 1 (07/20/21 1:03 PM) JURGEN Suspected N/A 2 (07/19/21 8:32 PM) TSH [place] [0.358-3.740 uIU/mL] 0.500 uIU/mL (07/20/21 6:13 AM) eCrCl (Drug Dosing) [70-120 mL/min] 70 mL/min 3 (07/19/21 8:32 PM) Basophil, Abs [0.0-0.2 th/uL] 0.1 th/uL (07/19/21 8:32 PM) BUN [6-26 mg/dL] 13 mg/dL (07/19/21 8:32 PM) Anion Gap [5-16] 12 (07/19/21 8:32 PM) Albumin [3.4-5.0 g/dL] 4.0 g/dL (07/19/21 8:32 PM) Alk Phos [45-117 IU/L] 88 IU/L (07/19/21 8:32 PM) ALT [12-78 IU/L] 30 IU/L (07/19/21 8:32 PM) AST [7-37 IU/L] 23 IU/L (07/19/21 8:32 PM) Baso [0.0-2.0 %] 1.2 % (07/19/21 8:32 PM) Bili Total [0.2-1.0 mg/dL] 0.4 mg/dL (07/19/21 8:32 PM) Calcium [8.50-10.10 mg/dL] 8.70 mg/dL (07/19/21 8:32 PM) Chloride [98-109 mmol/L] 102 mmol/L (07/19/21:32 PM) Carbon Dioxide [21-32 mmol/L] 25 mmol/L (07/19/21:32 PM) Creatinine [0.30-1.30 mg/dL] 0.77 mg/dL (07/19/21:32 PM) Eos [0.0-6.0 %] 1.5 % (07/19/21: PM) Eosinophil, Abs [0.0-0.4 th/uL] 0.1 th/uL (07/19/21: PM) Glucose [70-99 mg/dL] 137 mg/dL *HI* (07/19/21 8:32 PM) HCT [37.0-47.0 %] 39.3 % (07/19/21 8:32 PM) HGB [12.0-16.0 g/dL] 13.0 g/dL (07/19/21:32 PM) Lymphs [24.0-44.0 %] 28.9 % (07/19/21: PM) MCH [26.0-32.0 pg] 29.3 pg (07/19/21: PM) MCHC [31.0-36.0 g/dL] 33.2 g/dL (07/19/21:32 PM) MCV [80.0-100.0 fL] 88.4 fL (07/19/21:32 PM) [place] [0.0-10.0 %] 8.7 % (07/19/21:32 PM) MPV [6.5-13.0 fL] 9.4 fL (07/19/21 8:32 PM) Segs [45.0-75.0 %] 59.7 % (07/19/21:32 PM) PLT [140-450 th/uL] 180 th/uL (07/19/21 8:32 PM) Potassium [3.5-5.1 mmol/L] 4.0 mmol/L (07/19/21 8:32 PM) RBC [3.60-5.40 mill/uL] 4.44 mill/uL (07/19/21 8:32 PM) RDW [11.5-14.5 %] 13.3 % (07/19/21 8:32 PM) Sodium [136-145 mmol/L] 139 mmol/L (07/19/21 8:32 PM) Troponin-T [0.000-0.029 ng/mL] .010 ng/mL 4 (07/20/21 2:32 PM) .010 ng/mL 5 (07/20/21 6:13 AM) .010 ng/mL 6 (07/19/21 8:32 PM) WBC [4.5-11.0 th/uL] 5.7 th/uL (07/19/21 8:32 PM) BUN/Creatinine [7-34] 17 (07/19/21 8:32 PM) D-Dimer, Quant [0-500 ng/mL FEU] 33505 ng/mL FEU *HI* (07/19/21 8:32 PM) Globulin [2.4-4.2 g/dL] 3.2 g/dL (07/19/21 8:32 PM) Alb/Glob [0.8-1.6] 1.2 (07/19/21 8:32 PM) T Protein [6.4-8.2 g/dL] 7.2 g/dL (07/19/21 8:32 PM) Lymph, Abs [0.7-4.0 th/uL] 1.7 th/uL (07/19/21 8:32 PM) Monocyte, Abs [0.0-0.8 th/uL] 0.5 th/uL (07/19/21 8:32 PM) Neutrophil, Abs [1.4-8.5 th/uL] 3.4 th/uL (07/19/21 8:32 PM) 1Result Comment: Nurse Notified [facility], [address], [place], [address] 2Result Comment: Unable to calculate; this is the first serum creatinine (SCr) within 7 days 3Result Comment: Calculated by Discern Expert using the Cockcroft-Gault formula and the patients Dosing weight of 63.84 because the patients actual weight is 20% > than the IBW of 49.60. Since the patient was > 65 years of age and the Creatinine value was < 0.80mg/dL, 0.8mg/dL was substituted as the Creatinine value. 4Result Comment: ~LESS THAN 5Result Comment: ~LESS THAN 6Result Comment: ~LESS THAN Vital Signs Most recent to oldest [Reference Range]: 1 2 3 Temperature Oral [96.44-99.14 DegF] 98 DegF (07/20/21 6:17 PM) 97.8 DegF (07/20/21 3:29 PM) 98 DegF (07/20/21 12:50 PM) Heart Rate Monitored [60-110 bpm] 68 bpm (07/20/21 3:30 AM) 61 bpm (07/20/21 3:00 AM) 62 bpm (07/20/21 2:30 AM) Pulse Rate [60-110 bpm] 81 bpm (07/20/21 6:18 PM) 70 bpm (07/20/21 3:29 PM) 68 bpm (07/20/21 12:50 PM) Respiratory Rate [12-20 br/min] 18 br/min (07/20/21 6:17 PM) 18 br/min (07/20/21 3:29 PM) 20 br/min (07/20/21 4:15 AM) Mean Arterial Pressure, Cuff 84 mmHg (07/20/21 6:17 PM) 90 mmHg (07/20/21 3:29 PM) 87 mmHg (07/20/21 12:50 PM) BP Obtained By Blood Pressure by Machine (07/20/21 3:29 PM) Blood Pressure by Machine (07/20/21 12:50 PM) Blood Pressure by Machine (07/20/21 10:42 AM) Weight, Actual kg 85 kg (07/20/21 4:23 AM) 85.2 kg (07/19/21 9:09 PM) 85.2 kg (07/19/21 8:16 PM) Weight, Actual kg - manual 85 kg (07/20/21 4:23 AM) 85.2 kg (07/19/21 9:09 PM) 85.2 kg (07/19/21 8:16 PM) Weight, Actual lbs 187.8 lb (07/19/21 9:09 PM) Height cm 157.48 cm (07/20/21 4:23 AM) 157.48 cm (07/19/21 9:09 PM) 157.48 cm (07/19/21 8:16 PM) Height Inches 62 inch(es) (07/20/21 4:23 AM) 62 inch(es) (07/19/21 9:09 PM) 62 inch(es) (07/19/21 8:16 PM) Body Surface Area 1.9283 (07/20/21 4:23 AM) 1.9306 (07/19/21 9:09 PM) 1.9306 (07/19/21 8:16 PM) Body Mass Index (BMI) 34.3 kg/m2 (07/20/21 4:23 AM) 34.4 kg/m2 (07/19/21 9:09 PM) 34.4 kg/m2 (07/19/21 8:16 PM) [place] Body Weight Calculated 50.1 kg (07/20/21 4:23 AM) Blood Pressure [90-120/60-90 mmHg] 109/71mmHg (07/20/21 6:17 PM) 113/75mmHg (07/20/21 12:50 PM) Systolic Blood Pressure [90-120 mmHg] 126 mmHg *HI* (07/20/21 3:29 PM) Diastolic Blood Pressure [60-90 mmHg] 72 mmHg (07/20/21 3:29 PM) Social History Social History Type Response Smoking Status Patient quit smoking greater than 12 months ago Sex Female
--- OUTSIDE RECORDS SUMMARY | 2023-09-04 00:12 | XMS_ITS | Summary of Care ---
Author Name Unknown Organization [facility] Address [address] [place] [address]- [facility] [phone] Encounter [facility] [id number] Date(s): 07/15/18 - 07/16/18 [facility] [address] [place] [id number] [phone] Encounter Diagnosis Chest pain(Discharge Diagnosis) - 07/15/18 Discharge Disposition: [facility] HOME/ROUTINE DISCHARGE Attending Physician: Bridgette Turner DO Admitting Physician: Bridgette Turner DO Vital Signs Most recent to oldest [Reference Range]: 1 2 3 Temperature Oral [96.4-99.1 DegF] 98.3 DegF (07/16/18 7:10 AM) 97.7 DegF (07/15/18 11:55 PM) 97.6 DegF (07/15/18 7:15 PM) Heart Rate Monitored [60-100 bpm] 75 bpm (07/16/18 11:57 AM) 66 bpm (07/16/18 7:10 AM) 67 bpm (07/16/18 6:37 AM) Pulse Rate [60-100 bpm] 68 bpm (07/15/18 4:50 PM) 71 bpm (07/15/18 12:46 PM) Respiratory Rate [14-20] 20 (07/16/18 11:57 AM) 16 (07/16/18 7:10 AM) 17 (07/16/18 6:37 AM) Mean Arterial Pressure, Cuff 90 mmHg (07/16/18 11:57 AM) 92 mmHg (07/16/18 7:10 AM) 92 mmHg (07/16/18 7:10 AM) BP Obtained By Blood Pressure by Machine (07/16/18 11:57 AM) Blood Pressure by Machine (07/15/18 2:52 PM) Blood Pressure by Machine (07/15/18 12:46 PM) ED Laterality Left arm (07/16/18 11:57 AM) Right arm (07/15/18 2:52 PM) Right arm (07/15/18 12:46 PM) Weight, Actual kg 81.3 kg (07/15/18 4:50 PM) 77.85 kg (07/15/18 12:46 PM) Weight, Actual kg - manual 81.3 kg (07/15/18 4:50 PM) 77.85 kg (07/15/18 12:46 PM) Height cm 157.48 cm (07/15/18 4:50 PM) 157.48 cm (07/15/18 2:41 PM) 157.48 cm (07/15/18 12:46 PM) Height Inches 62 inch(es) (07/15/18 4:50 PM) 62 inch(es) (07/15/18 2:41 PM) 62 inch(es) (07/15/18 12:46 PM) Body Surface Area 1.8858 (07/15/18 4:50 PM) 1.8454 (07/15/18 12:46 PM) Body Mass Index (BMI) 33 kg/m2 (07/15/18 4:50 PM) 31 kg/m2 (07/15/18 12:46 PM) Blood Pressure [90-120/60-80 mmHg] 128/78mmHg *HI* (07/16/18 7:10 AM) Systolic Blood Pressure [90-120 mmHg] 133 mmHg *HI* (07/16/18 11:57 AM) 134 mmHg *HI* (07/16/18 6:37 AM) Diastolic Blood Pressure [60-80 mmHg] 68 mmHg (07/16/18 11:57 AM) 71 mmHg (07/16/18 6:37 AM) Problem List Condition Effective Dates Status Health Status Inform ant Spondylosis of cervical joint(Confirmed) Active Hypertension(Confirmed) Active Allergies, Adverse Reactions, Alerts Substance Reaction Severity Status morphine Rash Active Medications No Known Medications Results Hematology Most recent to oldest [Reference Range]: 1 2 3 WBC [4.5-11.0 th/uL] 5.2 th/uL (07/15/18 1:16 PM) RBC [3.60-5.40 mill/uL] 4.66 mill/uL (07/15/18 1:16 PM) HGB [12.0-16.0 g/dL] 13.8 g/dL (07/15/18 1:16 PM) HCT [37.0-47.0 %] 40.7 % (07/15/18 1:16 PM) MCV [80.0-100.0 fL] 87.2 fL (07/15/18 1:16 PM) MCH [26.0-32.0 pg] 29.7 pg (07/15/18 1:16 PM) MCHC [31.0-36.0 g/dL] 34.0 g/dL (07/15/18 1:16 PM) RDW [11.5-14.5 %] 12.9 % (07/15/18 1:16 PM) PLT [140-450 th/uL] 177 th/uL (07/15/18 1:16 PM) MPV [6.5-13.0 fL] 9.6 fL (07/15/18 1:16 PM) Segs [45.0-75.0 %] 55.4 % (07/15/18 1:16 PM) Lymphs [24.0-44.0 %] 31.5 % (07/15/18 1:16 PM) [place] [0.0-10.0 %] 10.5 % *HI* (07/15/18 1:16 PM) Eos [0.0-6.0 %] 1.7 % (07/15/18 1:16 PM) Baso [0.0-2.0 %] 0.9 % (07/15/18 1:16 PM) Neutrophil, Abs [1.4-8.5 th/uL] 2.9 th/u L (07/15/18 1:16 PM) Lymph, Abs [0.7-4.0 th/uL] 1.6 th/uL (07/15/18 1:16 PM) Monocyte, Abs [0.0-0.8 th/uL] 0.5 th/uL (07/15/18 1:16 PM) Eosinophil, Abs [0.0-0.4 th/uL] 0.1 th/u L (07/15/18 1:16 PM) Coagulation Most recent to oldest [Reference Range]: 1 2 3 PT [9.4-13.4 second(s)] 10.3 second(s) (07/15/18 1:16 PM) INR 1.0 *NA* (07/15/18 1:16 PM) General Chem Most recent to oldest [Reference Range]: 1 2 3 Sodium [136-145 mmol/L] 141 mmol/L (07/15/18 1:16 PM) Potassium [3.5-5.1 mmol/L] 3.9 mmol/L (07/15/18 1:16 PM) Chloride [98-107 mmol/L] 103 mmol/L (07/15/18 1:16 PM) Carbon Dioxide [21-32 mmol/L] 28 mmol/L (07/15/18 1:16 PM) Glucose [70-99 mg/dL] 84 mg/dL (07/15/18 1:16 PM) BUN [6-26 mg/dL] 11 mg/dL (07/15/18 1:16 PM) Creatinine [0.30-1.30 mg/dL] 0.72 mg/dL (07/15/18 1:16 PM) BUN/Creatinine [7-34] 15 (07/15/18 1:16 PM) Calcium [8.50-10.10 mg/dL] 9.50 mg/dL (07/15/18 1:16 PM) Anion Gap [5-16] 10 (07/15/18 1:16 PM) eGFR (nonAfrAm) [>=60 mL/min/1.73 m2] >6 0 mL/min/1.73 m2 (07/15/18 1:16 PM) eGFR (AfrAm) [>=60 mL/min/1.73 m2] >60 m L/min/1.73 m2 (07/15/18 1:16 PM) eCrCl (Drug Dosing) [70-135 mL/min] 77 m L/min 1 (07/15/18 1:16 PM) 1Result Comment: Calculated by Discern Expert using the Cockcroft-Gault formula and the patients Dosing weight of 60.90 because the patients actual weight is 20% > than the IBW of 49.60. Lipids Most recent to oldest [Reference Range]: 1 2 3 Triglyceride [<=149 mg/dL] 100 mg/dL (07/16/18 2:00 AM) Cholesterol [120.00-199.00 mg/dL] 146.00 mg/dL (07/16/18 2:00 AM) HDL [>=40 mg/dL] 50 mg/dL (07/16/18 2:00 AM) LDL Calculated [0-99 mg/dL] 76 mg/dL (07/16/18 2:00 AM) Risk Ratio [0.00-3.50] 2.92 (07/16/18 2:00 AM) Lipid Interp See Below (07/16/18 2:00 AM) Cardiac Markers Most recent to oldest [Reference Range]: 1 2 3 Troponin-T [0.000-0.029 ng/mL] .010 ng/mL 1 (07/16/18 2:00 AM) .010 ng/mL 2 (07/15/18 7:28 PM) .010 ng/mL 3 (07/15/18 1:16 PM) BN Peptide [0.0-100.0 pg/mL] 43.9 pg/mL (07/15/18 1:16 PM) 1Result Comment: ~LESS THAN 2Result Comment: ~LESS THAN 3Result Comment: ~LESS THAN Procedures Procedure Date Related Diagnosis Body Site Status COLLECTION VENOUS BLOOD VENIPUNCTURE 07/15/18 Completed Tubal ligation Completed Social History Social History Type Response Smoking Status Patient quit smoking greater than 12 months ago Assessment and Plan Extracted from: Title:CDU discharge summary merge Author:Tana Trejo APRN Date:07/16/18 Patient: GASTON MARLOW Age: 63 years Sex: Female : 1955 Associated Diagnoses: Chest pain Author: Tana Trejo APRN Primary Care Provider: Dr. Whalen Date and Time of Admit to Observation : 07/15/18 at 1601 Date and Time of Discharge order: 07/16/18 at 1322 Hospital Course: 53-year-old female was admitted to the CDU unit for cardiac workup. Telemetry, serial troponins, serial EKGs, and stress test. All test results were within normal limits with low risk for cardiac event. Patient was counseled to make an appointment with her primary care physician for further evaluation of her chest pain as well as for her elevated blood pressure. Discharge Information Diagnosis: Chest pain : Resolved, telemetry, serial EKGs, serial troponins, stresses. All test results were within normal limits with low risk for cardiac event. Patient counseled on need to follow-up with her primary care physician as an outpatient. For her chest pain as well as her elevated blood pressure. Elevated blood pressure without history of hypertension: Follow-up with the primary care physician for further evaluation and treatment. Discharge medication Follow up Plan 1. Call your primary care physician today for follow-up appointment. Objective Reports ADMISSION LAB WORK No Lab Work Done on Admit Date No qualifying data available. Results Review General results Most recent results Reviewed Results: All Discharge Information Discharge Summary Information: Admission: 07/15/2018, Discharge: , Admitting Physician: Bridgette Turner DO, Consulting Physician:, . Active diagnoses/ Problem list at discharge: Problems (Medical) Hypertension: (Medical) Spondylosis of cervical joint: (Medical). Physical Examination General: Alert and oriented, No acute distress. Eye: Pupils are equal, round and [...] 24 hrs) Last Charted Minimum Maximum Temp 98.3 (JUL 16 07:10) 97.6 (JUL 15:) 98.3 (JUL 16 07:10) Heart Rate 75 (JUL 16 11:57) 62 (JUL 15 17:03) 75 (JUL 16 11:57) Resp Rate 20 (JUL 16 11:57) L 11 (JUL 16 00:00) H 24 (JUL 15 19:15) SBP H 133 (JUL 16 11:57) 118 (JUL 15 23:55) H 156 (JUL 15 14:52) DBP 68 (JUL 16 11:57) 61 (JUL 15 19:15) H 96 (JUL 15 14:52) SpO2 97 (JUL 16 11:57) 97 (JUL 15 16:50) 100 (JUL 15 14:52) BMI 33 (JUL 15 16:50) Intake and Output Intake and Output Summary (07/15/2018 13:19 - 07/16/2018 13:18) startIO 8 Hrs 12 Hrs 24 Hrs Intake 2 mL 2 mL 2 mL Output 0 mL 0 mL 0 mL Balance 2 mL 2 mL 2 mL stopIO Musculoskeletal Normal range of motion. Normal strength. No tenderness. No swelling. Integumentary: Warm, Dry, Intact. Neurologic: Alert, Oriented, Moves all extremities appropriately. Cognition and Speech: Oriented, Speech clear and coherent. Psychiatric: Cooperative, Appropriate mood & affect. Lymphatics: No lymphadenopathy neck, axilla, groin. Hospital Course Hospital Course Admitted from: from emergency department. Admitting diagnosis: Chest pain ([id number]-OG R07.9, Discharge, Emergency medicine, Medical). Admission disposition: admit to monitored bed. Discharge Plan Discharge Summary Plan Discharge Status: improved. Discharge instructions given: to patient. Discharge disposition: discharge to home (into the care of family member, self care). Prescriptions: continue same medications, reviewed with patient, written and given to patient. Present on Admission Summary: My supervising physician was present in the building and able to render assistance as needed while I provided care.. Diagnosis Chest pain ([id number] R07.9, Discharge, Emergency medicine, Medical). Course Improving. . Orders PowerOrders Patient Care: Activity After Discharge (Order): 07/16/2018 13:22 EST, As tolerated Diet After Discharge (Order): Resume usual diet Admit/Transfer/Discharge: To home independently (Order): 07/16/2018 13:22 EST, To home independently. Education and Follow-up Counseled: patient, regarding diagnosis, regarding treatment, regarding medications, Patient is resting comfortably she is pain-free at this time. She is tolerating by mouth food and fluids without difficulty. All test results were reviewed with patient with low risk for cardiac event. Patient was counseled follow-up with her primary care physician as an outpatient. For further evaluation of her chest pain and her elevated blood pressure. Given strict return to emergency room guidelines. Return to emergency room if any new or worsening symptoms. All questions were answered. Patient verbalized understanding and agrees with plan of care. . Discharge Planning: CHEST PAIN, Uncertain Cause, HYPERTENSION, To Be Confirmed, Follow up with primary care provider Within 1 Day Call to arrange an appointment Return immediately if symptoms worsen Seek medical care if symptoms worsen Follow up with primary care provider. Addendum by Bridgette Turner DO on July 16, 2018 20:52 EST I personally evaluated and examined the patient in conjunction with the APC and agree with the assessment, treatment plan and disposition of the patient's as recorded by APC Future Appointments ??
--- OUTSIDE RECORDS SUMMARY | 2023-09-04 00:12 | XMS_ITS | Summary of Care ---
Author Name Unknown Organization [facility] Address [address] [place] [address]- Encounter [facility] [phone] Date(s): 02/13/20 - 02/14/20 [facility] [address] [facility] [id number] [phone] Discharge Disposition: [facility] HOME/ROUTINE DISCHARGE Attending Physician: Aguila De León DO Admitting Physician: Aguila De León DO Vital Signs Most recent to oldest [Reference Range]: 1 2 3 Temperature Axillary [95.4-98.1 DegF] 98 DegF (02/14/20 8:00 AM) 97.9 DegF (02/14/20 4:34 AM) Temperature Oral [96.4-99.1 DegF] 97.9 DegF (02/14/20 12:19 AM) 98.7 DegF (02/13/20 8:44 PM) 98.0 DegF (02/13/20 11:08 AM) Heart Rate Monitored [60-100 bpm] 73 bpm (02/14/20 1:44 PM) 73 bpm (02/14/20 1:37 PM) 72 bpm (02/14/20 9:14 AM) Pulse Rate [60-100 bpm] 77 bpm (02/13/20 7:19 AM) Respiratory Rate [14-20] 15 (02/14/20 1:44 PM) 21 *HI* (02/14/20 1:37 PM) 15 (02/14/20 9:14 AM) Mean Arterial Pressure, Cuff 103 mmHg (02/14/20 1:44 PM) 109 mmHg (02/14/20 1:37 PM) 106 mmHg (02/14/20 9:14 AM) Urine Voided 1 mL (02/14/20 2:14 AM) BP Obtained By Blood Pressure by Machine (02/13/20 11:08 AM) Blood Pressure by Machine (02/13/20 7:19 AM) ED Laterality Right arm (02/13/20 7:19 AM) Weight, Actual kg 81.75 kg (02/13/20 7:19 AM) Weight, Actual kg - manual 81.75 kg (02/13/20 7:19 AM) Type of Scale Used Standing (02/13/20 7:19 AM) Height cm 157.48 cm (02/13/20 7:19 AM) Height Inches 62 inch(es) (02/13/20 7:19 AM) Body Surface Area 1.8911 (02/13/20 7:19 AM) Body Mass Index (BMI) 33 kg/m2 (02/13/20 7:19 AM) Blood Pressure [90-120/60-80 mmHg] 127/89mmHg *HI* (02/14/20 1:44 PM) 153/90mmHg *HI* (02/14/20 9:14 AM) Systolic Blood Pressure [90-120 mmHg] 116 mmHg (02/14/20 1:37 PM) Diastolic Blood Pressure [60-80 mmHg] 105 mmHg *HI* (02/14/20 1:37 PM) Problem List Condition Effective Dates Status Health Status Inform ant Spondylosis of cervical joint(Confirmed) Active Hypertension(Confirmed) Active Obese(Confirmed) Active Allergies, Adverse Reactions, Alerts Substance Reaction Severity Status morphine Rash Active Medications clindamycin 150 mg oral capsule 300 mg, = 2 cap(s), PO, q6hr, X 10 day(s), # 80 cap(s), 0 Refill(s), 02/14/20 13:35:00 EDT, Pharmacy: [id number], 2 cap(s) PO q6hr,x10 day(s), 1, 157.48, cm, 02/13/20 7:19:00 EDT, Height cm, 81.75, kg, 02/13/20 7:19:00 EDT, Rikki... Start Date: 02/14/20 Stop Date: 02/14/20 Status: Discontinued clindamycin 300 mg oral capsule 300 mg, = 1 cap(s), PO, q8hr, X 7 day(s), # 21 cap(s), 0 Refill(s), 02/14/20 13:28:00 EDT, Pharmacy: [facility] [address] [place] [address], 1 cap(s) PO q8hr,x7 day(s), 1, 157.48, cm, 02/13/20 7:19:00 EDT, Height cm, 81.75, kg, 02/13/20 7:19:00 EDT, Weigh... Start Date: 02/14/20 Stop Date: 02/21/20 Status: Ordered Keflex 500 mg oral capsule 500 mg =, 1 cap(s), PO, q8hr, X 7 day(s), # 21 cap(s), 0 Refill(s), Pharmacy: [facility] [address] [place] [address], 1 cap(s) PO q8hr,x7 day(s), 1, 157.48, cm, 02/13/20 7:19:00 EDT, Height cm, 81.75, kg, 02/13/20 7:19:00 EDT, Weight, Actual kg Start Date: 02/14/20 Stop Date: 02/21/20 Status: Ordered predniSONE 20 mg oral tablet 20 mg, = 1 tab(s), PO, 1xDaily, X 5 day(s), # 5 tab(s), 0 Refill(s), 02/14/20 13:35:00 EDT, [facility] [address] [place] [address], 1 tab(s) PO 1xDaily,x5 day(s), 1, 157.48, cm, 02/13/20 7:19:00 EDT, Height cm, 81.75, kg, 02/13/20 7:19:00 EDT, W... Start Date: 02/14/20 Stop Date: 02/19/20 Status: Ordered Toradol 10 mg oral tablet 10 mg, = 1 tab(s), PO, q6hr, PRN for pain, X 3 day(s), # 12 tab(s), 0 Refill(s), 02/14/20 13:35:00 EDT, Pharmacy: [facility] [address] [place] [address], 1 tab(s) PO q6hr,x3 day(s),PRN:for pain, 1, 157.48, cm, 02/13/20 7:19:00 EDT, Height cm, 81.75, kg, 0... Start Date: 02/14/20 Stop Date: 02/17/20 Status: Ordered Tylenol 325 mg oral tablet 650 mg =, 2 tab(s), PO, q6hr, PRN for pain or fever, 1 Start Date: 02/13/20 Status: Ordered Vitamin [...] EDT, 1 Start Date: 02/13/20 Status: Ordered Results Most recent to oldest [Reference Range]: 1 2 eGFR (nonAfrAm) [>=60 mL/min/1.73 m2] >6 0 mL/min/1.73 m2 (02/13/20 7:45 AM) eGFR (AfrAm) [>=60 mL/min/1.73 m2] >60 m L/min/1.73 m2 (02/13/20 7:45 AM) JURGEN Suspected N/A 1 (02/13/20 7:45 AM) eCrCl (Drug Dosing) [70-120 mL/min] 88 m L/min 2 (02/13/20 7:45 AM) Basophil, Abs [0.0-0.2 th/uL] 0.1 th/uL (02/14/20 4:45 AM) 0.1 th/uL (02/13/20 7:45 AM) BUN [6-26 mg/dL] 12 mg/dL (02/13/20 7:45 AM) Anion Gap [5-16] 10 (02/13/20 7:45 AM) Baso [0.0-2.0 %] 1.3 % (02/14/20 4:45 AM) 1.4 % (02/13/20 7:45 AM) Calcium [8.50-10.10 mg/dL] 9.10 mg/dL (02/13/20 7:45 AM) Chloride [98-107 mmol/L] 106 mmol/L (02/13/20 7:45 AM) CK [0-124 IU/L] 60 IU/L (02/13/20 7:45 AM) Carbon Dioxide [21-32 mmol/L] 24 mmol/L (02/13/20 7:45 AM) Creatinine [0.30-1.30 mg/dL] 0.64 mg/dL (02/13/20 7:45 AM) CRP [0.00-0.30 mg/dL] 1.14 mg/dL *HI* (02/14/20 4:45 AM) 1.23 mg/dL *HI* (02/13/20 8:15 AM) Eos [0.0-6.0 %] 2.0 % (02/14/20 4:45 AM) 2.2 % (02/13/20 7:45 AM) Eosinophil, Abs [0.0-0.4 th/uL] 0.1 th/u L (02/14/20 4:45 AM) 0.1 th/uL (02/13/20 7:45 AM) Glucose [70-99 mg/dL] 115 mg/dL *HI* (02/13/20 7:45 AM) HCT [37.0-47.0 %] 36.7 % *LOW* (02/14/20 4:45 AM) 39.2 % (02/13/20 7:45 AM) HGB [12.0-16.0 g/dL] 12.7 g/dL (02/14/20 4:45 AM) 13.3 g/dL (02/13/20 7:45 AM) Lymphs [24.0-44.0 %] 32.1 % (02/14/20 4:45 AM) 24.4 % (02/13/20 7:45 AM) MCH [26.0-32.0 pg] 30.3 pg (02/14/20 4:45 AM) 29.6 pg (02/13/20 7:45 AM) MCHC [31.0-36.0 g/dL] 34.6 g/dL (02/14/20 4:45 AM) 34.0 g/dL (02/13/20 7:45 AM) MCV [80.0-100.0 fL] 87.6 fL (02/14/20 4:45 AM) 87.2 fL (02/13/20 7:45 AM) [place] [0.0-10.0 %] 9.7 % (02/14/20 4:45 AM) 9.2 % (02/13/20 7:45 AM) MPV [6.5-13.0 fL] 10.0 fL (02/14/20 4:45 AM) 8.9 fL (02/13/20 7:45 AM) Segs [45.0-75.0 %] 54.9 % (02/14/20 4:45 AM) 62.8 % (02/13/20 7:45 AM) PLT [140-450 th/uL] 167 th/uL (02/14/20 4:45 AM) 162 th/uL (02/13/20 7:45 AM) Potassium [3.5-5.1 mmol/L] 3.9 mmol/L (02/13/20 7:45 AM) RBC [3.60-5.40 mill/uL] 4.18 mill/uL (02/14/20 4:45 AM) 4.49 mill/uL (02/13/20 7:45 AM) RDW [11.5-14.5 %] 13.3 % (02/14/20 4:45 AM) 13.1 % (02/13/20 7:45 AM) Sed Rate [0-30 mm/hr] 25 mm/hr (02/13/20 7:45 AM) Sodium [136-145 mmol/L] 140 mmol/L (02/13/20 7:45 AM) WBC [4.5-11.0 th/uL] 4.5 th/uL (02/14/20 4:45 AM) 5.0 th/uL (02/13/20 7:45 AM) BUN/Creatinine [7-34] 19 (02/13/20 7:45 AM) Lymph, Abs [0.7-4.0 th/uL] 1.5 th/uL (02/14/20 4:45 AM) 1.2 th/uL (02/13/20 7:45 AM) Monocyte, Abs [0.0-0.8 th/uL] 0.4 th/uL (02/14/20 4:45 AM) 0.5 th/uL (02/13/20 7:45 AM) Neutrophil, Abs [1.4-8.5 th/uL] 2.5 th/u L (02/14/20 4:45 AM) 3.1 th/uL (02/13/20 7:45 AM) 1Result Comment: Unable to calculate; this is the first serum creatinine (SCr) within 7 days 2Result Comment: Calculated by Discern Expert using the Cockcroft-Gault formula and the patients Dosing weight of 62.46 because the patients actual weight is 20% > than the IBW of 49.60. Procedures Procedure Date Related Diagnosis Body Site Status ROUTINE VENIPUNCTURE 02/14/20 Comp leted ROUTINE VENIPUNCTURE 02/13/20 Comp leted Social History Social History Type Response Smoking Status Never a smoker Assessment and Plan Extracted from: Title:CDU discharge summary merge Author:Mera Shrestha APRN Date:02/14/20 Patient: GASTON MARLOW Age: 64 years Sex: Female : 1955 Associated Diagnoses: None Author: Mera Shrestha APRN Primary Care Provider: Amanda Date and Time of Admit to Observation : 02/13/2020 @ 0911 Date and Time of Discharge order: 02/14/2020 @ 1325 Hospital Course: 64-year-old female history of arthritis, , fibromyalgia, cervical cancer with tumor removal, comes emergency complaining of pain to the left hand with some swelling. She reports that it is located in the third digit, she states the pain has worsened over the past 3 days. She is noted to have a previous surgery about 40 years ago to this hand as well caused reduced movement and function of this affected digit. However she states the swelling is new. Patient was evaluated in the emergency room, orthopedics were called, they advised MRI and then call with results. Patient is admitted to CDU pending MRI, and we will reconsult orthopedics Dr. Trotter. 1200- Dr Trotter to room to see pt. reviewed MRI, concerned for possible infection after working in garden secondary to ground of [employer] . He advises to please consult ID. DW Dr Concepcion, and we have paged ID. She had uneventful overnight course. She has remained afebrile with VSS. WBC remains WNL. She has refused prescribed antibiotics. She was seen and evaluated by Dr. Trotter who recommended outpatient follow-up. Dr. Sullivan from ID was consulted yesterday and spoke to Dr. Concepcion and will see patient prior to discharge today. Discussed with Dr. Sullivan who acknowledged she will see patient today. The patient has been seen and evaluated by Dr. Her who reviewed all tests and discussed with patient the plan for discharge and outpatient follow-up/management pending further recommendations from ID. She acknowledged understanding and agrees with the plan. She was seen and evaluated by Dr. Sullivan who reviewed tests and discussed with patient the plan for discharge and outpatient follow-up/management. She acknowledged understanding and agrees with the plan. Refer to her note for detailed assessment and recommendations. Patient reports return to baseline of swelling and function of third digit left hand. She is able to extend the finger fully and flexion is 35-40% which is baseline. There is no obvious edema or erythema at time of assessment. NV intact. Discharge Information Diagnosis: Hand pain-swelling : Tendon injury, chronic Discharge medication Follow up Plan 1. with PCP and ortho Dr. Patel Objective Reports ADMISSION LAB WORK 02/14/20 04:45 HCT: 36.7 % 02/14/20 04:45 WBC: 4.5 th/uL 02/14/20 04:45 RBC: 4.18 mill/uL 02/14/20 04:45 HGB: 12.7 g/dL 02/14/20 04:45 MCV: 87.6 fL 02/14/20 04:45 MCH: 30.3 pg 02/14/20 04:45 MCHC: 34.6 g/dL 02/14/20 04:45 RDW: 13.3 % 02/14/20 04:45 PLT: 167 th/uL 02/14/20 04:45 MPV: 10.0 fL 02/14/20 04:45 Segs: 54.9 % 02/14/20 04:45 Lymphs: 32.1 % 02/14/20 04:45 [place]: 9.7 % 02/14/20 04:45 Eos: 2.0 % 02/14/20 04:45 Baso: 1.3 % 02/14/20 04:45 Neutrophil, Abs: 2.5 th/uL 02/14/20 04:45 Lymph, Abs: 1.5 th/uL 02/14/20 04:45 Monocyte, Abs: 0.4 th/uL 02/14/20 04:45 Eosinophil, Abs: 0.1 th/uL 02/14/20 04:45 Basophil, Abs: 0.1 th/uL No qualifying data available. Results Review General results Most recent results Discharge Information Discharge Summary Information: Admission: 02/13/2020, Discharge: , Admitting Physician: Aguila De León DO, Consulting Physician: Alejandro Sullivan MD, Matthew R MD , . Active diagnoses/ Problem list at discharge: [...] 24 hrs) Last Charted Minimum Maximum Temp 97.9 (FEB 13 04:34) 97.9 (FEB 13 00:19) 98.7 (FEB 12 20:44) Heart Rate 66 (FEB 13 04:34) 66 (FEB 13:34) 70 (FEB 12 20:44) Resp Rate 14 (FEB 13:34) L 13 (FEB 12 20:44) H 21 (FEB 13 00:00) SBP H 143 (FEB 13:34) H 143 (FEB 13:34) H 151 (FEB 13 00:00) DBP 75 (FEB 13 04:34) 74 (FEB 13 00:00) 75 (FEB 13 04:34) SpO2 96 (FEB 13 04:34) 96 (FEB 13 04:34) 98 (FEB 12 20:44) Intake and Output Intake and Output Summary (02/13/2020 12:00 - 02/14/2020 11:59) startIO 8 Hrs 12 Hrs 24 Hrs Intake 446 mL 1018 mL 2012 mL Output 0 mL 1 mL 1 mL Balance 446 mL 1017 mL 2011 mL Intake and Output Details 8 Hrs 12 Hrs 24 Hrs Output Urine Voided 0 mL 1 mL 1 mL stopIO Musculoskeletal Normal range of motion. Normal strength. No swelling. She states ROM in third finger left hand has returned to baseline. Able to extend and flex approximately 35-40%. No obvious edema or erythema. NV intact.. Integumentary: Warm, Dry, Intact. Neurologic: Alert, Oriented. Cognition and Speech: Oriented, Speech clear and coherent. Psychiatric: Cooperative, Appropriate mood & affect. Neck: Supple, Non-tender, No jugular venous distention. Genitourinary: No costovertebral angle tenderness. Lymphatics: No lymphadenopathy neck, axilla, groin. Hospital Course Hospital Course Admitted from: from emergency department. Discharge Plan Discharge Summary Plan Discharge Status: improved. Discharge instructions given: to patient. Discharge disposition: discharge to home (into the care of family member, self care). Prescriptions: continue same medications, reviewed with patient, written and given to patient. Orders Orders (Selected) Inpatient Orders InProcess (Exam Started) V:Falls, Fall Prevention in Your Hospital Room: Ordered Activity: Juan Score Daily: Call Consult: Call Consult: Chart Check: Clindamycin (dx other ): 600 mg = 50 mL, 100 mL/hr, IVPB, q8hr (interval) Colace: 100 mg = 1 cap(s), PO, 2xDaily, PRN: Constipation Complete MRI Screening Form Prior to Procedure: Compression Device Intermittent Pneumatic: Consult to Physician: Dulcolax Laxative: 10 mg = 1 supp, Rectal, 1xDaily, PRN: Constipation Fall Risk Scale: IV Reseal Insertion/Care: IV Reseal Insertion: Interdisciplinary Patient Education: Milk of Magnesia: 30 mL, PO, 2xDaily, PRN: Constipation Notify Physician Chest Pain: Physician to Nurse Diagnostic Tests: Physician to Nurse: Pulse Oximetry: Reglan: 10 mg = 2 mL, IV, q4hr, PRN: Nausea/Vomiting Regular Diet BCHS: Review/Update Plan of Care: Sodium Chloride 0.9% 1,000 mL: 150 mL/hr, IV Telemetry - Expires in 24 hours: Telemetry : Telemetry: Telemetry: Tylenol: 650 mg = 2 tab(s), PO, q4hr, PRN: Pain Vital Signs: Zofran ODT: 4 mg = 1 tab(s), PO, q4hr, PRN: Nausea/Vomiting Zofran: 4 mg = 2 mL, IV, q4hr, PRN: Nausea/Vomiting famotidine: 20 mg = 1 tab(s), PO, 1xDaily Completed *VENIPUNC: *VENIPUNC: Admission Database Adult: BMP: CBC with Differential: CBC with Differential: CPK: CRP: CRP: DX Hand Complete 3 or more Views: Discern HT WT: ESR: Facility Charge Ticket 8.0: MRI Hand w/o Con: Place in Observation: Toradol: 15 mg = 1 mL, IV, Once Transition Patient to Observation: Discontinued Consult to Physician: NPO Diet BCHS: Documented Medications Documented Tylenol 325 mg oral tablet: 650 mg = 2 tab(s), PO, q6hr, PRN: for pain or fever Vitamin B12 1000 mcg oral tablet: 1,000 mcg = 1 tab(s), PO, 1xDaily Vitamin C 1000 mg oral tablet: 1,000 mg = 1 tab(s), PO, 1xDaily Vitamin D3 1000 intl units oral capsule: 1,000 Intl-Unit = 1 cap(s), PO, 1xDaily. Present on Admission Summary: My supervising physician was present in the building and able to render assistance as needed while I provided care.. Course Improving. Performed on: EKG Rate: Diagnosis: Diagnosis: Diagnosis: Diagnosis . Education and Follow-up Counseled: patient, regarding diagnosis, regarding treatment, regarding medications. Discharge Planning: CELLULITIS, HYPERTENSION, To Be Confirmed, Follow up with primary care provider Within 3 - 5 Days Call to arrange an appointment Follow up with primary care provider Return immediately if symptoms worsen Seek medical care if symptoms worsen. Addendum by Min Her MD on February 14, 2020 19:50 EDT I personally assessed and examined the p atient, have read and agree with the documentation of the nurse practitioner/physician vet assistant and agree with the treatment plan and disposition of the patient. Future Appointments ??
[2023-09-04 01:16] VITALS: BP 138/62; BP 143/72; PULSE 68; PULSE 70
[2023-09-04 01:19] VITALS: BP 138/70; PULSE 74
[2023-09-04] MEDS: Sucralfate Oral Suspension 1 GM/10 ML ORAL.SUSP PO (01:58)
[2023-09-04] MEDS: Magnesium Hydrox/Alum Hydrox 30 ML ORAL.SUSP PO (01:58)
[2023-09-04] MEDS: Lidocaine HCl Viscous 2 % 15 ML SOLUTION 10 ML MUCOUS MEM (01:58)
[2023-09-04 02:00] VITALS: BP 137/70; PULSE 74; RESP 14; O2SAT 98
--- NOTE | 2023-09-04 02:04 | PC.NURSE ---
pt medicated according to mar. pt denies pain at discharge. pt ambulatory at discharge.pt provided with discharge packet. pt verbalized understanding of discharge plan
== END 2023-09-04 02:05 | disposition home or self-care (01) ==
PROVIDERS: Physician Assistant; Emergency Provider Student in an Organized Health Care Education/Training Program
DX: K21.9 Gastro-esophageal reflux disease without esophagitis (principal); R00.2 Palpitations; R06.02 Shortness of breath; R20.0 Anesthesia of skin; R10.13 Epigastric pain; Z79.899 Other long term (current) drug therapy; Z11.52 Encounter for screening for COVID-19; Z20.822 Contact with and (suspected) exposure to COVID-19
CPT/HCPCS: 71045; 80048; 80076; 83735; 83880; 84439; 84443; 84484; 85025; 87502; 87635; 93005; 99284

== ENCOUNTER → 2023-09-03 19:33 | Outpatient (BNV) | payer MEDICARE, SELFPAY | PROVIDERS: Emergency Provider Student in an Organized Health Care Education/Training Program; Visit Provider Internal Medicine | DX: R07.9 Chest pain, unspecified (principal) | CPT/HCPCS: 93010 ==

== ENCOUNTER 2024-03-23 09:15 | Emergency (ER) | payer OTHER, SELFPAY ==
--- NOTE | ~2024-03-23 | XR_ITS ---
EXAMINATION: XR CHEST CLINICAL INFORMATION: Epigastric pain. COMPARISON: Chest radiograph dated 09/03/2023. TECHNIQUE: 2 views of the chest were obtained. FINDINGS: The lungs are clear. The cardiomediastinal silhouette is normal in size. There is no pleural effusion or pneumothorax. No acute osseous abnormality. XR/XR chest 2V IMPRESSION: No acute cardiopulmonary findings.
[2024-03-23 09:24] VITALS: BP 148/75; PULSE 85; RESP 16; TEMP 36.7; O2SAT 97; BMI 31.8
--- NOTE | 2024-03-23 09:50 | PC.NURSE ---
patient arrives ambulatory with steady gait through external triage, states for the last few weeks she has been experiencing diarrhea and lower abdominal pain. patient states she was recently started on an antibiotic for a UTI and completed the 2 week dose, however she was experiencing the diarrhea before the antibiotic started. patient states the pain is in her lower abdomen in her pubic area. patient states she has a history of uterine cancer and she had the part of the uterus resected, however this feels to her like it did when she was first diagnosed. patient denies any nausea or vomiting, states she has been able to drink fluids throughout the day, however the pain and the diarrhea seem to be getting worse. patient states there is a small brown golden on her pubic area, upon assessment lesly is noted to have a small brown spot on her panus, states it started as a small dot and has since grown in size. the shape of the golden is irregular however it is not raised, she is endorsing pain in the area of the marking. patient BS are present in all four quadrants, denies any pain or tenderness to palpation. LSCTA. VSS upon arrival. 18g IV placed in LAC. blood work drawn and sent to lab. patient provided with urine cup, states she tried to provide a sample but was only able to provide scant amount, not enough for urinalysis at this time. callbell placed within reach, patient educated to press if she needs to use the restroom again. awaiting MD mendez
[2024-03-23 09:52] LABS: MANUAL DIFF FLAG NO
[2024-03-23 09:55] LABS: Basophils Absolute Auto 0.1 X10*3/uL (0.0-0.2); Basophils Percent Auto 0.9 % (0-2); Eosinophils Absolute Auto 0.2 X10*3/uL (0.0-0.4); Eosinophils Percent Auto 2.3 % (0-4); Hematocrit 39.5 % (37.0-47.0); Hemoglobin 12.9 g/dl (12.0-16.0); Imm Gran Abs Auto 0.04 X10*3/uL (0.00-0.03); Imm Gran Pct Auto 0.6 % (0.0-0.4); Lymphocytes Absolute Auto 1.3 X10*3/uL (1.2-4.9); Lymphocytes Percent Auto 19.6 % (20-40); Mean Corpuscular HGB Conc 32.7 g/dl (31.0-35.0); Mean Corpuscular Hemoglobin 27.1 pg (27.0-33.0); Mean Platelet Volume 10.4 fL (9.4-12.3); Monocytes Absolute Auto 0.6 X10*3/uL (0.1-1.2); Monocytes Percent Auto 9.5 % (2-11); Neutrophils Absolute Auto 4.4 x10*3/uL (2.0-8.3); Neutrophils Percent Auto 67.1 % (45-73); Platelet Count 263 X10*3/uL (160-400); Red Blood Count 4.76 X10*6/uL (4.20-5.50); Red Cell Distribution Width 13.8 % (11.0-16.0); White Blood Count 6.5 X10*3/uL (4.8-10.8)
[2024-03-23 10:05] VITALS: BP 127/66; PULSE 78; RESP 14; TEMP 36.8; O2SAT 95
[2024-03-23 10:11] LABS: Alanine Aminotransferase 15 U/L (0-31); Alkaline Phosphatase 102 U/L (39-117); Anion Gap 13 (12-20); Aspartate Amino Transferase 15 U/L (5-31); Bilirubin Total 0.4 mg/dL (0.0-1.0); Blood Urea Nitrogen 12 mg/dL (9-16); Calcium 9.3 mg/dL (8.4-10.2); Carbon Dioxide 27 mmol/L (22-29); Chloride 105 mmol/L (96-108); Creatinine Clr Calc Pharmacy 67.8; Estimated Glomerular Filt Rate > 60; Glucose Random 95 mg/dL (60-115); Potassium 3.7 mmol/L (3.3-5.1); Sodium 141 mmol/L (135-145); Total Protein 8.2 g/dL (6.5-8.0)
--- NOTE | 2024-03-23 10:45 | ED.GENADULT ---
HPI - General Adult General Chief complaint: General Medical Stated complaint: diharea, stomach pain Time Seen by Provider: 03/23/24 10:29 Source: patient Mode of arrival: ambulatory Limitations: no limitations History of Present Illness HPI narrative: 69-year-old female presents to emergency department with multiple complaints. Past medical history significant for uterine cancer states not take any daily meds. She states that since she moved back here from [place] starts in the morning and has diarrhea all day. She states she also has small rash to epigastric do not have uterine cancer it is not where she would not raised painful but states that she is concerned she states she had a negative Pap smear in she gets followed for by OB in [place]. Everything has been normal for some time. She also states that every once in a while when she takes deep breath she has some epigastric pain that is intermittent lasts few seconds then goes away. Related Data Allergies Allergy/AdvReac Type Severity Reaction Status Date / Time morphine Allergy Rash Verified 03/23/24 09:25 Review of Systems Review of Systems: Review of systems: General: Patient denies any fever chills recent illness or falls Musculoskeletal: Denies back pain or body aches or other injuries HEENT: denies headache, runny nose, ear pain Respiratory: denies shortness of breath, cough Cardiovascular: no chest pain or palpitations : denies dysuria, frequency Abdomen: Diarrhea no nausea vomiting epigastric abdominal pain Extremities: no swelling, no pain Skin: no diaphoresis Yes all other systems are reviewed and are negative PMFSH Social History Social History Smoked in Last 30 Days: No Use of substances other than those prescribed or required for medical reasons: No Advance Directives: Yes Advance Directives Information Provided: Yes Advance Directives on File: No Do you have a plan to hurt others: No Plan Physical Exam ED Vital Signs: Vital Signs - 24 hr 03/23/24 09:24 03/23/24 10:05 03/23/24 12:00 Temperature 98.1 F 98.2 F 98.7 F Pulse Rate 85 78 95 Respiratory Rate 16 14 19 Blood Pressure 148/75 H 127/66 153/72 H Pulse Oximetry 97 95 99 Oxygen Delivery Method Room Air Room Air Room Air BMI result Body Mass Index 31.8 General: Well-appearing well-nourished in no signs of distress HEENT: Normocephalic atraumatic Neck: No signs of JVD, no masses no tenderness or lymphadenopathy Cardiovascular: Regular rate and rhythm Respiratory: Clear to auscultation bilaterally Abdomen: Soft nontender no masses Extremities: Normal pedal pulses no signs of edema Skin: Dry warm no rashes small ovoid non raised brown on her lower abdomen is nontender to palpation Back: No tenderness full ROM Course Course Course Narrative: Labs are all normal patient is feeling better with Maalox Pepcid I will discharge patient home Medications Administered Discontinued Medications Generic Name Dose Route Start Last Admin Trade Name Freq PRN Reason Stop Dose Admin Al Hydroxide/Mg Hydroxide 30 ml 03/23/24 10:45 03/23/24 10:56 Magnesium Hydrox/Alum Hydrox 30 Ml Oral.Susp PO 03/23/24 10:46 30 ml ONCE ONE Administration Famotidine 20 mg 03/23/24 10:45 03/23/24 10:56 Famotidine 20 Mg Tablet PO 03/23/24 10:46 20 mg ONCE ONE Administration Medical Decision Making Medical Decision Making [facility] Narrative: Do not think there is any further workup for the mole on the abdomen I do think she can follow up with her doctor as far as her concern for uterine cancer I think after she had a cholecystostomy the best person to follow up with. As far as her diarrhea we will check labs electrolytes she has been having diarrhea as much she states she should have some derangement she has complete signs looks well. Sirs epigastric pain that sound like gastritis give patient Maalox Pepcid I will give chest x-ray shows nothing her lungs labs including lipase and LFTs were ordered. Differential Diagnosis Differential Diagnoses: The differential diagnosis associated with the presentation includes Diarrhea dehydration electrolyte abnormality hypomagnesemia hypokalemia rectal bleeding so far as epigastric pain this sounds more like gastritis does not sound like pneumonia fever or pancreatitis and the restroom abdomen looks very nonspecific unsure if clinical significance of the rash appears more like a mole Lab Data 03/23/24 09:48 03/23/24 09:48 Labs: Lab Results 03/23/24 03/23/24 Range/Units 09:48 10:55 WBC 6.5 (4.8-10.8) X10*3/uL RBC 4.76 (4.20-5.50) X10*6/uL Hgb 12.9 (12.0-16.0) g/dl Hct 39.5 (37.0-47.0) % MCV 83.0 (80.0-98.0) fL MCH 27.1 (27.0-33.0) pg MCHC 32.7 (31.0-35.0) g/dl RDW 13.8 (11.0-16.0) % Plt Count 263 D (160-400) X10*3/uL MPV 10.4 (9.4-12.3) fL Immature Gran % (Auto) 0.6 H (0.0-0.4) % Neut % (Auto) 67.1 (45-73) % Lymph % (Auto) 19.6 L (20-40) % [place] % (Auto) 9.5 (2-11) % Eos % (Auto) 2.3 (0-4) % Baso % (Auto) 0.9 (0-2) % Lymph # (Auto) 1.3 (1.2-4.9) X10*3/uL [place] # (Auto) 0.6 (0.1-1.2) X10*3/uL Eos # (Auto) 0.2 (0.0-0.4) X10*3/uL Baso # (Auto) 0.1 (0.0-0.2) X10*3/uL Abs Immat Gran (auto) 0.04 H (0.00-0.03) X10*3/uL Absolute Neuts (auto) 4.4 (2.0-8.3) x10*3/uL Absolute Nucleated RBC 0.000 (0.0-0.012) X10*3/uL Nucleated RBC % (auto) 0.0 (0.0-0.2) /100WBC Sodium 141 (135-145) mmol/L Potassium 3.7 (3.3-5.1) mmol/L Chloride 105 (96-108) mmol/L Carbon Dioxide 27 (22-29) mmol/L Anion Gap 13 (12-20) BUN 12 (9-16) mg/dL Creatinine 0.79 (0.5-1.4) mg/dL Estim Creat Clear Calc 67.8 Estimated GFR > 60 Random Glucose 95 (60-115) mg/dL Calcium 9.3 (8.4-10.2) mg/dL Total Bilirubin 0.4 (0.0-1.0) mg/dL AST 15 (5-31) U/L ALT 15 (0-31) U/L Alkaline Phosphatase 102 (39-117) U/L Total Protein 8.2 H (6.5-8.0) g/dL Albumin 4.0 (3.5-5.0) g/dL Lipase 31 (8-78) U/L Urine Color Yellow Urine Appearance Clear Urine pH 6.5 (5.0-9.0) Ur Specific [place] 1.020 (1.005-1.025) Urine Protein Negative (Neg-Trace) mg/dL Urine Glucose (UA) Negative (Negative) mg/dL Urine Ketones Negative (Negative) mg/dL Urine Blood Negative (Negative) Urine Nitrite Negative (Negative) Ur Leukocyte Esterase Negative (Negative) Discharge Plan Discharge Clinical Impression: Abdominal pain Patient Disposition: Home, Self-Care Instructions: Abdominal Pain (ED), Chronic Diarrhea (ED), Dehydration (ED) Additional Instructions: You were seen today in the emergency room abdominal pain. He had labs done which were unremarkable belly exam was normal as far as discoloration in lower abdomen I do think it is worthwhile to call and follow up with commercial lending assistant. Far as chest pain think that is anything life-threatening I think it is safe to follow-up outpatient. Thrive show diarrhea I do recommend changing her diet Print Language: Chinese
[2024-03-23] MEDS: Famotidine 20 MG TABLET PO (10:56)
[2024-03-23] MEDS: Magnesium Hydrox/Alum Hydrox 30 ML ORAL.SUSP PO (10:56)
[2024-03-23 11:02] LABS: Appearance Urine Clear; Color Urine Yellow; Glucose Urine UA Negative (Negative); Leukocyte Esterase Urine Negative (Negative); Nitrite Urine Negative (Negative); PH 6.5 (5.0-9.0); Urine Blood Negative (Negative); Urine Ketones Negative (Negative); Urine Protein Negative (Neg-Trace)
[2024-03-23 11:18] LABS: Lipase 31 U/L (8-78)
[2024-03-23 12:00] VITALS: BP 153/72; PULSE 95; RESP 19; TEMP 37.1; O2SAT 99
--- NOTE | 2024-03-23 12:02 | MHC.EDTECH ---
pt vital signs given, pt requesting food maggie she feels dizzy, told I will ask RN, call das within reach.
[2024-03-23 12:56] VITALS: BP 153/72; PULSE 95; RESP 19; TEMP 37.1; O2SAT 99
== END 2024-03-23 13:06 | disposition home or self-care (01) ==
PROVIDERS: Emergency Provider Student in an Organized Health Care Education/Training Program
DX: R10.13 Epigastric pain (principal); R19.7 Diarrhea, unspecified; R21 Rash and other nonspecific skin eruption; Z79.899 Other long term (current) drug therapy
CPT/HCPCS: 36415; 71046; 80053; 81003; 83690; 85025; 99283; 99284